=== PATIENT | female | born 1945 | race Caucasian/White ===

== ENCOUNTER → 2017-12-04 17:04 | Outpatient (CLI) | payer MEDICARE, SELFPAY ==
[2017-04-11 08:38] VITALS: BMI 43.9
--- NOTE | 2017-12-04 17:00 | CT_ITS ---
STUDY: CT CHEST WITHOUT CONTRAST REASON FOR EXAM: Female, 72 years old. Pulmonary fibrosis RADIATION DOSAGE (If Supplied By Facility): CTDIvol = ( 14.80 ) mGy, DLP = ( 391.83 ) mGycm TECHNIQUE: Transaxial imaging was performed without the administration of intravenous contrast material. Individualized dose optimization techniques were used for this CT. COMPARISON: None. FINDINGS: The lungs are not fully expanded with interstitial prominence. Mild fibrosis at the lung bases posteriorly. Normal heart and pericardium. Up to 1.3 cm nodes in the mediastinum. Normal hilar regions. Normal unenhanced pulmonary arteries. Calcified aorta arch and descending thoracic aorta. Prominent ascending aorta measuring 4.5 cm in diameter. Mild degenerative vertebral changes with probable hemangiomas noted of several vertebral bodies. There is no demonstrated abnormality of the visualized upper abdomen. CT/Chest without Contrast IMPRESSION: Interstitial prominence. Mild bilateral basilar fibrotic changes. Dilated ascending aorta. Electronically Signed: Efrain Garcia DO at 23:34 EST Tel [phone], Service support ,
--- NOTE | 2017-12-04 17:16 | RAD_ITS ---
STUDY: X-RAY - RIGHT KNEE REASON FOR EXAM: Female, 72 years old. Pain TECHNIQUE: 4 view(s) of the knee. COMPARISON: None. FINDINGS: Normal visualized distal femur. Normal visualized proximal tibia and fibula. Normal proximal tibiofibular articulation. Minimal spurring and slight narrowing at the medial femorotibial compartment. Mild spurring at the lateral femorotibial compartment. Degenerative spurring and narrowing at the patellofemoral articulation. The soft tissue structures are unremarkable. RAD/Knee 4 or More Views IMPRESSION: Mild degenerative changes of the knee. Electronically Signed: Efrain Garcia DO at 22:52 EST Tel [phone], Service support ,
== END ==
PROVIDERS: Family Provider Internal Medicine; PCP Internal Medicine; Visit Provider Internal Medicine Critical Care Medicine
DX: M25.561 Pain in right knee (principal); J84.10 Pulmonary fibrosis, unspecified
CPT/HCPCS: 71250; 73564

== ENCOUNTER → 2017-12-30 12:56 | Outpatient (CLI) | payer MEDICARE, MEDICAID, SELFPAY ==
[2017-04-11 08:38] VITALS: BMI 43.9
== END ==
PROVIDERS: Family Provider Internal Medicine; PCP Internal Medicine; Visit Provider Internal Medicine Critical Care Medicine
DX: G47.33 Obstructive sleep apnea (adult) (pediatric) (principal)
CPT/HCPCS: 98960; G0463

== ENCOUNTER → 2018-03-03 14:22 | Outpatient (CLI) | payer MEDICARE, SELFPAY ==
[2017-04-11 08:38] VITALS: BMI 43.9
--- NOTE | 2018-03-03 14:25 | BI_ITS ---
MAMMOGRAPHY - BILATERAL SCREENING REASON FOR EXAM: Female, 72 years old. Routine annual screening examination. PERTINENT HISTORY: no fam hx rt mole removal 2010 rt mole marked TECHNIQUE: Digital bilateral breast massiel (3D mammographic acquisition) in the CC and MLO projections. 2-D mediolateral oblique (MLO) and craniocaudad (CC) views of both breasts were obtained. CAD: Full Field Digital Mammography with Computer Added Detection was performed. COMPARISON: Feb 14 2017 2:41pm FINDINGS: Breast Composition: There are scattered areas of fibroglandular density. There are no dominant masses or suspicious calcifications. No other significant abnormalities are identified. BI/SCREENING MAMM (CAD), BILAT IMPRESSION: Stable bilateral screening mammogram. Yearly follow-up mammogram recommended. (A) ASSESSMENT CATEGORY: BIRADS Category 2: Benign. A letter regarding these results will be sent to the patient by the facility within 30 days. Approximately 10% of breast cancers are not detected by mammography. A normal mammogram should not delay biopsy of a clinically suspicious abnormality. [id number] Electronically Signed: Christian Mehta MD at 13:18 EDT Tel , Service support ,
== END ==
PROVIDERS: Family Provider Internal Medicine; PCP Internal Medicine; Visit Provider Internal Medicine
DX: Z12.31 Encounter for screening mammogram for malignant neoplasm of breast (principal)
CPT/HCPCS: 77063; 77067

== ENCOUNTER → 2018-05-18 12:53 | Outpatient (CLI) | payer MEDICARE, SELFPAY ==
[2017-04-11 08:38] VITALS: BMI 43.9
--- NOTE | 2018-05-19 14:32 | PFT ---
INTRODUCTION: The patient is a 73-year-old female that presents for pulmonary function studies secondary to a diagnosis of idiopathic pulmonary fibrosis. Respiratory therapy reports good patient effort. Bronchodilators were used during testing. INTERPRETATION: Forced expiration spirometry demonstrates no evidence of a large airways obstructive ventilatory defect. There was no significant response to aerosolized bronchodilators. Spirograms are of good quality and plateau normally. The respiratory flow volume loop appears restricted in nature. Body plethysmography was performed and reveals a decreased TLC to 3.2 L, 67% of predicted, indicative of a moderate restrictive ventilatory defect. The remainder of the lung volumes are symmetrically reduced. Diffusing capacity by single breath CO is severely reduced at 37% of predicted. When compared to previous pulmonary function studies dated September 2017, there has been a significant decrease in the patient's TLC along with a 9% reduction in DLCO. IMPRESSION: These pulmonary function studies demonstrate the presence of a moderate restrictive ventilatory defect with a disproportionate severe reduction in diffusing capacity. There has been worsening in the patient's PFTs since they were last completed in September 2017.
== END ==
PROVIDERS: Family Provider Internal Medicine; PCP Internal Medicine; Visit Provider Nurse Practitioner Acute Care
DX: J84.112 Idiopathic pulmonary fibrosis (principal)
CPT/HCPCS: 94060; 94726; 94729

== ENCOUNTER → 2018-05-26 14:47 | Outpatient (CLI) | payer MEDICARE, SELFPAY ==
[2017-04-11 08:38] VITALS: BMI 43.9
[2018-05-26 18:03] LABS: Hematocrit 37.5 % (37-47); Hemoglobin 11.9 g/dl (12.0-15.0); Mean Corp Hgb Conc 31.7 g/gl (32-36); Mean Corpuscular Hgb 27.7 pg (27.0-32.0); Mean Corpuscular Volume 87.2 fL (81-99); Platelet Count 274 K/mm3 (150-450); RBC Distribution Width CV 14.3 % (11.6-14.6); RBC Distribution Width SD 45.5 fl (35.1-43.9); White Blood Count 8.7 K/mm3 (4.4-11.0)
[2018-05-26 18:16] LABS: Scan Indicated on CBC? Y/N NO
[2018-05-26 19:09] LABS: ALB/GLOB Ratio 1.1 RATIO (0.9-2.4); AST(SGOT) 13 U/L (15-37); Alanine Aminotransfer ALT/SGPT 25 U/L (13-56); Albumin, Serum 4.1 g/dL (3.2-5.0); Alkaline Phosphatase 103 U/L (45-117); Anion Gap 9 (5-15); BUN 25 mg/dL (7-18); BUN/Creat Ratio 15.1 RATIO (10-20); Calcium,Total 8.9 mg/dL (8.5-10.1); Chloride 104 mmol/L (98-107); Creatinine, Serum 1.66 mg/dL (0.55-1.02); EST Glomerular Filtration Rate 32 mL/min (>60); Est Glom Filt Rate - Afr Amer 39 mL/min (>60); Free T3 2.1 pg/mL (2.18-3.98); Globulin 3.7 g/dL (2.2-4.2); Glucose 82 mg/dL (74-106); Magnesium 2.2 mg/dL (1.6-2.6); Phosphorus 2.9 mg/dL (2.5-4.9); Potassium 4.1 mmol/L (3.5-5.1); Protein, Total 7.8 g/dL (6.4-8.2); Sodium Level 138 mmol/L (136-145); T4 Free Direct 0.86 ng/dL (0.76-1.46); Thyroid Stim Hormone (TSH) 2.06 uIU/mL (0.358-3.74)
[2018-05-27 08:31] LABS: Vitamin B12 313 pg/mL (211-911); Vitamin D,25 Hydroxy 28.7 ng/mL (29.95-100.01)
== END ==
PROVIDERS: Family Provider Internal Medicine; PCP Internal Medicine; Visit Provider Internal Medicine
DX: E03.9 Hypothyroidism, unspecified (principal); R20.2 Paresthesia of skin; R53.83 Other fatigue
CPT/HCPCS: 36415; 80053; 82306; 82607; 83735; 84100; 84439; 84443; 84481; 85027

== ENCOUNTER 2018-06-02 14:30 | Outpatient (RCR) | payer MEDICARE, SELFPAY ==
[2017-04-11 08:38] VITALS: BMI 43.9
--- NOTE | 2018-04-16 16:22 | HP.PTEVAL_ITS ---
Patient's Visit Information SILVIA TRUJILLO is a 73 year old F referred to Physical Therapy by ROSALBA Hussein C with a diagnosis of Weakness. Date of Evaluation: 04/16/18 Physical Therapist: Alexa Merchant - Visit Plan Frequency: 2x /Week Duration: 4 Weeks Plan: Focus on LE/core s/s and balance - Subjective Subjective: Patient reports that she is have a hard time with her legs and not being able to breathe. Is having a lot of problems with her knees that they feel like they are made of out jelly and they give out. Has been using a cane for about 3 months. Her legs have been bothering her since about the week after Thanksgiving- insidious onset. Feels that some may be OA, fibro and neuropathy. Knee cap feels like its on backwards. Worst: 05/12 Agg: doing anything. Eases: pain patch and Tylenol, stretching and ice/heat. Pain radiates to the bottoms of her feet. Reports hip and back pain as well- hurts all over due to the Fibromyalgia. Has been diagnosed with Fibro for at least 7 years. Is in pain management- Dr. Smyth (back, knees, and everything)- has been there about a year- the pain patch helps a lot. Just saw them on Friday and she is going to get an injection in May in her back. The last fall was in Dec- lives alone- in an apartment and has home health 3x a week-bathing, dressing, cleaning and grocery store- is able to drive. PMHx/Meds: scanned into chart - Objective Posture: FH, RS, Increased kyphosis- can not correct with verbal cues. Gait: antalgic- straight cane- decreased casandra- very SOB- wide PERCY. HR/TR: can do them but requires significant UE support. SLS: WS but unable to SLS. Static and dynamic balance are both fair minus- sitting balance is fair. Palpation: tender along medial and lateral joint line bilateral right>left. ROM: WFL. Strength: Ankle: 4+/5, Knee: 4/5, Hip: 4-/5 Core: poor - Goals Goal 1:: Patient will be I with HEP and progression Goal Time Frame: 4-6 Weeks Goal 2:: Patient will ambulate >300 feet with no SOB and a normalized gait pattern Goal Time Frame: 4-6 Weeks Goal 3:: Patient will demo 4/5 strength in LE Goal Time Frame: 4-6 Weeks Goal 4:: Patient will report no LOB for 1 week Goal Time Frame: 4-6 Weeks - Rehabilitation Potential Physical Therapy Diagnosis: Patient presents with hypomobility- she has decreased strength and muscular endurance leading to abnormal gait pattern and increased pain with activity Rehabilitation Potential: Fair - Anticipated Interventions Patient/Client Instruction: Educate patient on: Benefits of Fitness Program For the Purpose of:: To improve performance and independence with ADL's Therapeutic Exercise to Include: Strength training, Endurance training, Agility training, Body mechanics, Postural training, Flexibilty training, Neuromotor development, Dynamic Lumbar Stabilization For the Purpose of:: To improve muscle performance and motor function Thank you for the opportunity to evaluate your patient. For Medicare and Medicare HMO plans, please review the plan of care and approve it. It will need to be FAXED BACK to us at [phone] for Medicare purposes. Please let me know if there are questions or concerns regarding this plan of care. Physician Signature: Date:
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
== END 2018-06-02 19:00 | disposition home or self-care (01) ==
LOC: PT 14:30
PROVIDERS: Family Provider Internal Medicine; PCP Internal Medicine; Visit Provider Nurse Practitioner Acute Care
DX: R53.1 Weakness (principal); R29.6 Repeated falls
CPT/HCPCS: 97110; 97162; 97164

== ENCOUNTER → 2018-06-09 14:17 | Outpatient (CLI) | payer MEDICARE, SELFPAY ==
[2017-04-11 08:38] VITALS: BMI 43.9
[2018-06-09 15:03] LABS: Rheumatoid Factor < 10.0 IU/mL (<15)
[2018-06-10 15:44] LABS: ANTINUCLEAR ANTIBODIES DIRECT Negative (Negative)
[2018-06-11 03:07] LABS: Cytoplasmic Ab (C-ANCA) <1:20 titer (Neg:<1:20)
[2018-06-11 11:24] LABS: CCP IgG Antibodies 4 units (0-19); Perinuclear Ab (P-ANCA) <1:20 titer (Neg:<1:20)
== END ==
PROVIDERS: Family Provider Internal Medicine; PCP Internal Medicine; Visit Provider Internal Medicine Critical Care Medicine
DX: J84.112 Idiopathic pulmonary fibrosis (principal)
CPT/HCPCS: 36415; 86038; 86200; 86225; 86235; 86256; 86431

== ENCOUNTER → 2018-06-30 12:41 | Outpatient (CLI) | payer MEDICARE, SELFPAY ==
[2017-04-11 08:38] VITALS: BMI 43.9
== END ==
PROVIDERS: Family Provider Internal Medicine; PCP Internal Medicine; Visit Provider Internal Medicine Critical Care Medicine
DX: J84.112 Idiopathic pulmonary fibrosis (principal)
CPT/HCPCS: 71250

== ENCOUNTER → 2018-07-29 13:14 | Outpatient (CLI) | payer MEDICARE, SELFPAY ==
[2017-04-11 08:38] VITALS: BMI 43.9
--- NOTE | 2018-07-29 13:45 | MRI_ITS ---
STUDY: MRI LUMBAR SPINE WITHOUT CONTRAST REASON FOR EXAM: Female, 73 years old. Low back pain with difficulty walking TECHNIQUE: Standardized fat and water weighted pulse sequences were obtained in the sagittal and axial planes. COMPARISON: November 26, 2016 FINDINGS: T12-L1: Normal endplates. Normal disc height, hydration and morphology. Normal bilateral facet joints. Normal central canal and bilateral lateral recesses. Normal bilateral intervertebral neural foramina. Normal lumbar lordosis. There is no substantial scoliosis. Normal conus medullaris that terminates at T12-L1 L1-2: Mild endplate spurring. Normal disc height, hydration and morphology. Normal bilateral facet joints. Normal central canal and bilateral lateral recesses. Normal bilateral intervertebral neural foramina. L2-3: Mild endplate spurring. Normal disc height, desiccation and mild annular bulge in association with small left posterolateral/foraminal disc protrusion.. Normal bilateral facet joints. Normal central canal. Minor left lateral recess and neuroforaminal encroachment with moderate narrowing on the left. L3-4: Normal endplates. Normal disc height, desiccation and mild annular bulge. Mild facet arthropathy and thickening of ligamenta flava.. Normal central canal. Mild bilateral recess and neuroforaminal encroachment. L4-5: Normal endplates. Normal disc height, desiccation and minor annular bulge with small right posterolateral/foraminal disc fusion and moderate sized protrusion on the left. Mild facet arthropathy and thickening of the ligament flava.. Normal central canal. Mild right lateral recess and neuroforaminal encroachment with moderate narrowing on the left. L5-S1: Normal endplates. Normal disc height, desiccation and mild annular bulge with small broad-based left posterolateral/foraminal disc protrusion... Facet arthropathy and thickening of ligamenta flava.. Normal central canal.. Mild to moderate left lateral recess and neuroforaminal stenosis Normal visualized sacral ala. Normal visualized paraspinous soft tissue structures. Findings are similar to that seen on prior study MRI/Spine Lumbar (Routine) IMPRESSION: No evidence for acute fracture or subluxation Multilevel spinal stenosis secondary to disc disease and bony hypertrophy more pronounced on the left. Findings as above Electronically Signed: Haja Diane MD at 16:24 EDT , Service support ,
== END ==
PROVIDERS: Family Provider Internal Medicine; PCP Internal Medicine; Visit Provider Nurse Practitioner Acute Care
DX: M54.5 Low back pain (principal)
CPT/HCPCS: 72148

== ENCOUNTER → 2018-09-02 15:59 | Outpatient (CLI) | payer MEDICARE, SELFPAY ==
[2017-04-11 08:38] VITALS: BMI 43.9
--- NOTE | 2018-09-02 16:03 | RAD_ITS ---
STUDY: X-RAY CHEST REASON FOR EXAM: Female, 73 years old. Cough and short of breath TECHNIQUE: Frontal and lateral views of the chest. COMPARISON: Chest x-ray 11/14/2017, CT scan 06/30/2018. FINDINGS: Continued low lung volumes. Continued interstitial prominence consistent with fibrosis. Continued elevation of the right hemidiaphragm. No focal infiltrates. No effusions. No significant change. Normal size heart. Normal mediastinum and hussein. Normal visualized pulmonary arteries. Normal visualized aortic arch and descending thoracic aorta. There are diffuse degenerative changes of the visualized thoracic spine. Normal visualized ribs, clavicles, and shoulders. There is no demonstrated abnormality of the visualized soft tissue structures of the upper abdomen. RAD/Chest PA and Lateral IMPRESSION: No change. Continued low lung volumes and chronic interstitial fibrosis. Electronically Signed: Jamin Velez MD at 14:07 EDT , Service support ,
[2018-09-02 17:39] LABS: Absolute Lymphocyte Count 1.64 X10^3/ul (0.83-4.51); Absolute Neutrophil Count 5.3 X10^3/uL (2.0-7.7); Basophil# 0.04 X10^3/uL; Basophil% 0.5 % (0-1); Eosinophil# 0.31 X10^3/uL; Eosinophils% 3.9 % (0-5); Hematocrit 35.1 % (37-47); Lymphocyte # 1.64 X10^3/ul (4.0); Lymphocyte % 20.7 % (19-41); Mean Corp Hgb Conc 31.3 g/gl (32-36); Mean Corpuscular Hgb 28.1 pg (27.0-32.0); Mean Corpuscular Volume 89.5 fL (81-99); Mean Platelet Vol. 9.8 fl (6.2-12.0); Monocyte# 0.65 X10^3/uL; Monocyte% 8.2 % (0-10); Neutrophil # 5.25 X10^3/uL (2.7-7.7); Neutrophil % 66.3 % (47-70); POSITIVE COUNT NO; POSITIVE DIFFERENTIAL NO; POSITIVE MORPHOLOGY NO; Platelet Count 232 K/mm3 (150-450); RBC Distribution Width CV 14.5 % (11.6-14.6); RBC Distribution Width SD 47.4 fl (35.1-43.9); Red Blood Count 3.92 M/mm3 (4.2-5.4); White Blood Count 7.9 K/mm3 (4.4-11.0)
== END ==
PROVIDERS: Family Provider Internal Medicine; PCP Internal Medicine; Referring Provider Nurse Practitioner Family; Visit Provider Nurse Practitioner Family
DX: N18.3 Chronic kidney disease, stage 3 (moderate) (principal); R05 Cough; R06.02 Shortness of breath
CPT/HCPCS: 36415; 71046; 85025

== ENCOUNTER 2018-10-20 14:59 | Inpatient (IN) | payer MEDICARE, MEDICAID, SELFPAY ==
[2017-04-11 08:38] VITALS: BMI 43.9
[2018-10-02 13:45] VITALS: BMI 44.6
[2018-10-20] VITALS (21 sets, daily range): BP systolic 107–151; BP diastolic 57–111; PULSE 80–93; RESP 12–32; TEMP 36.7–37.2; O2SAT 88–100; BMI 45.0; BMI 45.1
--- NOTE | 2018-10-20 15:09 | RAD_ITS ---
STUDY: X-RAY CHEST REASON FOR EXAM: Female, 73 years old. Drowsiness and shortness of breath. Chest pain. TECHNIQUE: Single AP portable view of the chest. COMPARISON: Comparison is made with prior study dated September 02, 2018. FINDINGS: EKG electrodes are seen. Elevation of the right hemidiaphragm. This is unchanged. Stable increased markings in the left lung with areas of confluence suggestive of scarring. There is no demonstrated pleural abnormality. There is mild cardiac enlargement. Normal mediastinum and hussein. Normal visualized pulmonary arteries. There is atherosclerotic tortuosity of the aortic arch and descending thoracic aorta. There are diffuse degenerative changes of the visualized thoracic spine. Normal visualized ribs, clavicles, and shoulders. There is no demonstrated abnormality of the visualized soft tissue structures of the upper abdomen. RAD/Chest 1 View (Portable) IMPRESSION: Stable examination. Electronically Signed: Bernabe Norwood MD at 15:45 EST Tel [phone], Service support ,
--- NOTE | 2018-10-20 15:15 | ED.VISSUMM ---
- ER Visit Summary Date of Service: 10/20/18 Chief Complaint: Shortness of breath History of Present Illness: The patient is a 73 F with history of idiopathic pulmonary fibrosis, coronary vascular disease status post stenting, and oxygen dependence presents to the emergency department shortness of breath and chest pain. History is hard to gather from the patient given her respiratory distress. She apparently called squad today because she was having chest pain and felt like she could not breathe. She states that she has been excessively tired over the past day. She does feel like she is not moving much air. She has had a scant cough but denies any productive sputum. She denies any fevers or chills. Her major complaint is fatigue. She has increased her oxygen at home. On squad arrival, she was found to be hypoxic and placed on a nonrebreather. She states that it did improve her chest pain. Physical Examination: Vital signs reviewed General: Well-nourished, well-developed Head: Normocephalic, atraumatic Eyes: Pupils equal and reactive, extraocular muscles intact Neck, supple, no lymphadenopathy Heart: Regular rate and rhythm Respiratory: Diminished air movement in all lung smalls Abdomen: Soft, nontender, nondistended, no peritoneal signs Back: Nontender Extremities: Nontender, no edema, no cords Skin: Normal color no rash Neuro: Alert and oriented, no focal or lateralizing deficits Test Results: [] Emergency Department Course and Treatment: EKG was obtained on patient arrival. There is no acute ischemia. Patient was placed on BiPAP. Her blood gas does show evidence of hypercapnia with mild acidosis. I do feel that this is likely the etiology of her symptoms. The patient does have underlying pulmonary fibrosis. Her x-ray does not show any evidence of volume overload or acute infiltrative process. We did have a difficult time obtaining screening labs. I attempted to peripheral IVs under ultrasound and were unable to get blood. With the patient's severe illness, she was consented for central line. This was done in the right IJ under ultrasound guidance. Repeat x-ray shows to be in good position. With her hypercapnic respiratory failure and requirement of BiPAP, I do feel the patient is in require admission to the ICU at least overnight. I did discuss her care with Dr. De Los Santos. He was comfortable holding on antibiotics at this time. Patient was also discussed with the hospitalist and will be admitted. Treatment Plan: [] Disposition: Admission Impression: 1. Acute hypercapnic respiratory failure 2. Hypoxia 3. Chest pain 4. Central line by ED physician This note was generated with [employer] dictation software. It may contain incorrect words, spelling, and punctuation that were not noted in review of the chart prior to signing ED Disposition - Plan for ED Patient: Chief Complaint: Shortness of Breath Referrals: Judy Mcnulty MD [Primary Care Provider] -
[2018-10-20 15:41] LABS: Base Excess 2 mmol/L (-2 to +2); Bicarbonate 28.5 mmol/L (22-26); Blood Gas Specimen Type ART; O2 Delivery Device NRB Mask; PO2 133 mmHG (75-100); SITE L Radial; SO2 98 % (95-99); Time Given 1530; Total Carbon Dioxide 30 mmol/L; pCO2 62.2 mmHg (35-45); pH 7.27 (7.35-7.45)
[2018-10-20 16:00] LABS: Anion Gap 8 (5-15); BUN 36 mg/dL (7-18); BUN/Creat Ratio 20.5 RATIO (10-20); Calcium,Total 8.4 mg/dL (8.5-10.1); Chloride 106 mmol/L (98-107); Creatinine, Serum 1.76 mg/dL (0.55-1.02); EST Glomerular Filtration Rate 30 mL/min (>60); Est Glom Filt Rate - Afr Amer 36 mL/min (>60); Glucose 89 mg/dL (74-106); Potassium 4.7 mmol/L (3.5-5.1); Sodium Level 139 mmol/L (136-145)
[2018-10-20] MEDS: Ipratropium/Albuterol Sulfate 3 ML AMPUL.NEB INHALATION (16:20)
--- NOTE | 2018-10-20 16:35 | ED.RN ---
pt had multiple attempts at iv. lab, rn, medic, and dr have tried. dr consulted about central line. dario cline rn [phone]
--- NOTE | 2018-10-20 17:05 | RAD_ITS ---
STUDY: X-RAY CHEST REASON FOR EXAM: Female, 73 years old. Central line placement. TECHNIQUE: Portable chest. COMPARISON: 3:20 PM. FINDINGS: Low lung volumes. Right IJ line terminates at the junction of the superior vena cava and right atrium. The lungs are clear and expanded. There is no demonstrated pleural abnormality. Normal size heart. Normal mediastinum and hussein. Normal visualized pulmonary arteries. Normal visualized aortic arch and descending thoracic aorta. Soft tissues and bony structures are unremarkable. RAD/CXR for Line Placement IMPRESSION: Right IJ line terminates in the SVC at the right atrial junction. No acute process. Electronically Signed: Amaris Barr MD at 17:57 EST Tel , Service support ,
[2018-10-20 17:26] LABS: Absolute Lymphocyte Count 1.65 X10^3/ul (0.83-4.51); Basophil# 0.03 X10^3/uL; Basophil% 0.3 % (0-1); Eosinophil# 0.33 X10^3/uL; Eosinophils% 3.3 % (0-5); Hematocrit 33.9 % (37-47); Hemoglobin 10.4 g/dl (12.0-15.0); Lymphocyte # 1.65 X10^3/ul (4.0); Lymphocyte % 16.6 % (19-41); Mean Corp Hgb Conc 30.7 g/gl (32-36); Mean Corpuscular Hgb 28.3 pg (27.0-32.0); Mean Corpuscular Volume 92.4 fL (81-99); Mean Platelet Vol. 10.1 fl (6.2-12.0); Monocyte# 0.94 X10^3/uL; Monocyte% 9.4 % (0-10); Neutrophil # 6.95 X10^3/uL (2.7-7.7); Neutrophil % 69.9 % (47-70); Platelet Count 83 K/mm3 (150-450); RBC Distribution Width CV 14.5 % (11.6-14.6); RBC Distribution Width SD 47.5 fl (35.1-43.9); Red Blood Count 3.67 M/mm3 (4.2-5.4)
[2018-10-20 17:30] LABS: Lactic Acid 0.6 mmol/L (0.4-2.0)
[2018-10-20 17:40] LABS: POSITIVE COUNT NO; POSITIVE DIFFERENTIAL NO; POSITIVE MORPHOLOGY NO
[2018-10-20 17:53] LABS: BNP,B-Type NATRIURETIC PEPTIDE 78.3 pg/mL (0-100)
[2018-10-20] MEDS: MethylPREDNISolone 125 MG/2 ML Vial IV (17:55)
[2018-10-20] MEDS: 0.9% Normal Saline 1,000 ML 75 ML IV (19:30)
--- NOTE | 2018-10-20 19:34 | ED.RN ---
REPORT GIVEN TO QUE IN ICU.
--- NOTE | 2018-10-20 21:24 | PCM.HP.STD ---
Problem List (1) Shortness of breath Status: Acute (2) Chest pain Status: Resolved Qualifiers: Chest pain type: precordial pain Qualified Code(s): R07.2 - Precordial pain History of Present Illness Date of Admission: 10/20/18 Chief Complaint: Shortness of breath, chest pain The patient is a 73 year old [facility] after being brought in by squad with complaints of shortness of breath and chest pain. Complete history was unobtainable due to patient's respiratory distress and altered mental status. Information obtained by the emergency room physician from the patient indicated that the patient was having some chest discomfort and felt that she could not breathe. She had also been complaining of excessive fatigue times 1 day. Patient admitted to a cough but denied productive sputum. On arrival of the squad, patient was found to be hypoxic and placed on a nonrebreather. Evaluation in the emergency room included an EKG which showed no acute ischemic changes, patient was placed on BiPAP, arterial blood gases were obtained which showed a mild acidosis and hypercapnia. X-ray did not show any evidence of acute CHF or an acute infiltrative process. Lab was unable to obtain blood and the patient consented to central line which was placed in the emergency room by the emergency room physician. Repeat chest x-ray showed no evidence of pneumothorax. Central line appear to be in good position. Obtained which showed a normal white blood cell count, hemoglobin was 10.4, creatinine was elevated at 1.76, BUN was 36, troponin was normal. Patient's lactic acid was not elevated. Pulmonary medicine was contacted and the patient was admitted to ICU for acute respiratory failure and chest discomfort. Review of systems was unobtainable from the patient due to her respiratory distress and decreased mental status. After the patient was admitted to the ICU, her niece informed nursing that the patient was a hospice patient at home but according to her niece, patient rescinded hospice and agreed to go to the hospital by [facility]. Past Medical History Past Medical History (Chronic Problems): Chronic Problems (Last Reviewed 10/02/18 @ 19:13 by Shivani Medellin NP-Justin) CKD (chronic kidney disease), stage III (Chronic) Spinal stenosis (Chronic) Hyperlipidemia (Chronic) Old myocardial infarction (Chronic) NONSTEMI March 2015 Chronic constipation (Chronic) MYRNA (obstructive sleep apnea) (Chronic) Chronic hypoxemic respiratory failure (Chronic) Anxiety (Chronic) Hypothyroid (Chronic) Low back pain radiating to right lower extremity (Chronic) CKD (chronic kidney disease), stage II (Chronic) HTN (hypertension) (Chronic) Idiopathic pulmonary fibrosis (Chronic) Chronic renal failure, stage 3 (moderate) (Chronic) Fibromyalgia (Chronic) Somatic dysfunction of rib cage region (Chronic) Stented coronary artery (Chronic) 2 stents to the RCA in March by Dr. Irvin; PCI-BMS-RCA X 2 03/16/15; [facility] w/PCI JORDAN-RCA 04/10/17 CAD (coronary artery disease) (Chronic) Morbid obesity (Chronic) GERD (gastroesophageal reflux disease) (Chronic) Medical History: Medical History (Last Reviewed 10/02/18 @ 19:13 by NELLA Coronado) Spinal stenosis (Chronic) M48.00 Hyperlipidemia (Chronic) E78.5 Old myocardial infarction (Chronic) I25.2 NONSTEMI March 2015 Chronic constipation (Chronic) K59.09 Idiopathic pulmonary fibrosis (Suspected) J84.112 MYRNA (obstructive sleep apnea) (Chronic) G47.33 Chronic hypoxemic respiratory failure (Chronic) J96.11 Anxiety (Chronic) F41.9 Hypothyroid (Chronic) E03.9 Low back pain radiating to right lower extremity (Chronic) M54.5 CKD (chronic kidney disease), stage II (Chronic) N18.2 HTN (hypertension) (Chronic) I10 Idiopathic pulmonary fibrosis (Chronic) J84.112 Chest pain (Resolved) R07.9 Parotitis (Resolved) K11.20 Chronic renal failure, stage 3 (moderate) (Chronic) N18.3 Fibromyalgia (Chronic) Atypical chest pain (Acute) R07.89 Somatic dysfunction of rib cage region (Chronic) M99.08 CAD (coronary artery disease) (Chronic) I25.10 Morbid obesity (Chronic) E66.01 GERD (gastroesophageal reflux disease) (Chronic) K21.9 Atherosclerotic heart disease cheesh-na coronary artery w/angina pectoris I25.119 Body mass index (BMI) 40.0-44.9, adult Z68.41 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 Chronic kidney disease, stage 3 N18.3 GALLOWAY (dyspnea on exertion) R06.09 Hyperlipidemia E78.5 Hypothyroidism E03.9 Multi-vessel coronary artery stenosis I25.10 Obesity E66.9 Old myocardial infarction I25.2 Shortness of breath R06.02 H/O: hysterectomy Z90.710 Allergies codeine Allergy (Verified 10/20/18 15:09) Shortness of breath Penicillins Allergy (Verified 10/20/18 15:09) Shortness of breath Sulfa (Sulfonamide Antibiotics) Allergy (Verified 10/20/18 15:09) Shortness of breath atorvastatin Adverse Reaction (Intermediate, Verified 10/20/18 15:09) Myalgias Home Medications: Ambulatory Orders Medication Instructions Recorded Nitroglycerin [Nitrostat] 0.4 mg SUBLINGUAL Q5M PRN 03/29/16 Oxygen, Home [Home Oxygen] 2 lpm NASAL CONT 04/03/16 c-pap MISCELLANEOUS 11/11/17 aspirin 81 mg tablet,delayed 81 mg PO QDAY #30 tab 12/08/17 release lisinopril 10 mg tablet 10 mg PO DAILY #30 tab 12/08/17 cholecalciferol (vitamin D3) 2,000 2,000 unit PO QDAY tab 12/17/17 unit tablet fentanyl 12 mcg/hr transdermal 1 patch TRANSDERMAL Q72H 01/13/18 patch ranitidine 300 mg tablet 300 mg PO QDAY tab 01/15/18 metoprolol succinate ER 25 mg 25 mg PO DAILY #30 tab 01/23/18 tablet,extended release 24 hr gabapentin 400 mg capsule 800 mg PO QHS #180 cap 02/05/18 clopidogrel 75 mg tablet 75 mg PO DAILY #90 tab 03/20/18 linaclotide 145 mcg capsule 145 mcg PO QDAY #90 cap 04/01/18 furosemide 40 mg tablet 40 mg PO DAILY #90 tab 05/05/18 albuterol sulfate HFA 90 2 puff INHALATION Q4H PRN #18 g 07/31/18 mcg/actuation aerosol inhaler amitriptyline 25 mg tablet 50 mg PO QDAY tab 07/31/18 loratadine 10 mg capsule 10 mg PO DAILY #90 cap 08/07/18 omeprazole 40 mg capsule,delayed 40 mg PO DAILY #90 cap 08/07/18 release trazodone 50 mg tablet 50 mg PO QHS PRN #90 tab 08/11/18 guaifenesin ER 1,200 mg tablet, 1,200 mg PO Q12H #14 tab 09/02/18 extended release 12 hr duloxetine 20 mg capsule,delayed 60 mg PO BID #180 cap 09/09/18 release gabapentin 300 mg capsule 300 mg PO BID #180 cap 09/09/18 levothyroxine 25 mcg tablet 25 mcg PO DAILY #90 tab 09/09/18 montelukast 10 mg tablet 10 mg PO DAILY #90 tab 09/09/18 pravastatin 40 mg tablet 40 mg PO QHS #90 tab 09/09/18 lorazepam 0.5 mg tablet 0.5 mg PO QHS PRN #30 tab 09/21/18 Surgical History: Surgical History (Last Reviewed 10/02/18 @ 19:13 by NELLA Coronado) Stented coronary artery (Chronic) 2 stents to the RCA in [place] by Dr. Irvin; PCI-BMS-RCA X 2 03/16/15; [facility] w/PCI JORDAN-RCA 04/10/17 S/P lumpectomy, right breast Z98.890 STATUS POST CARDIAC STENT PLACEMENT Surgical History: no surgical history, hysterectomy, - - 2 coronary stents into the RCA in March 2015. Kidney Stones. Psychiatric History: No pertinent psych hx DIRECTOR OF HEALTH EDUCATION History: No pertinent DIRECTOR OF HEALTH EDUCATION history Lives: Alone Smoking Status: Never smoker Tobacco Use: Non-smoker Alcohol: None Drugs: None - *Family History Maternal Family History: Family History (Last Reviewed 10/02/18 @ 19:13 by NELLA Coronado) Sister Hypertension COPD (chronic obstructive pulmonary disease) Mother Dementia History Items: Hypertension Paternal Family History: Family History (Last Reviewed 10/02/18 @ 19:13 by NELLA Coronado) Sister Hypertension COPD (chronic obstructive pulmonary disease) Mother Dementia History Items: No pertinent history Sibling Family History: Family History (Last Reviewed 10/02/18 @ 19:13 by NELLA Coronado) Sister Hypertension COPD (chronic obstructive pulmonary disease) Mother Dementia History Items: Heart Disease Review of Systems Comment: Review of systems was unobtainable due to the patient's respiratory distress and altered mental status due to hypoxia and hypercapnia VTE Information - Inpt Only VTE Present on Admission: No VTE Mechan Device Prophylaxis: None VTE Pharm Prophylaxis ordered?: Yes Patient Problems: Active and Suspected Problems (Last Updated 10/20/18 @ 21:32 by Osvaldo Franco DO) Shortness of breath (Acute) - Physical Exam General: Well developed, Lethargic, - - Appearred to be in moderate respiratory distress and is on BiPAP HEENT: Atraumatic, PERRLA, EOMI, Normocephalic Oral: Moist Mucosa Neck: No JVD, No Nuchal Rigidity, Trachea Midline, Thyroid Normal Size and Texture Lungs: Clear to auscultation, No rhonchi, No wheeze, No rales, Diminished Cardiovascular: Regular rate, Regular Rhythm, Normal S1, Normal S2, No murmurs, No Ectopic Activity, PMI Normal, No rub noted, No Gallop Abdomen: Bowel Sounds Present, Soft, Non Tender, Non-Distended, Obese, No hernias noted Extremities: No clubbing, No cyanosis, No edema, Capillary Refill Less than 3 Seconds Neurological: Cranial nerves II-XII grossly intact, Neuro grossly intact Psych/Mental Status: - - Patient responds to painful stimuli and loud verbal stimuli but is confused Vital Signs Temp Pulse Resp BP Pulse Ox 98.1 F 82 22 H 133/81 H 93 10/20/18 19:56 10/20/18 21:00 10/20/18 21:00 10/20/18 21:00 10/20/18 21:00 Oxygen Flow Rate (L/min) 15 Oxygen Delivery Method Bi-pap Weight: 119.3 kg Body Mass Index (BMI) 45.1 Laboratory Tests Past 24 Hrs 10/20/18 10/20/18 10/20/18 15:24 15:24 15:24 WBC Cancelled Corrected WBC Cancelled RBC Cancelled Hgb Cancelled Hct Cancelled MCV Cancelled MCH Cancelled MCHC Cancelled RDW Cancelled RDW Differential Cancelled Plt Count Cancelled MPV Cancelled Immature Gran % (Auto) Cancelled Neut % (Auto) Cancelled Lymph % (Auto) Cancelled [place] % (Auto) Cancelled Eos % (Auto) Cancelled Baso % (Auto) Cancelled Immature Gran # (Auto) Cancelled Absolute Neuts (auto) Cancelled Absolute Lymphs (auto) Cancelled Absolute Monos (auto) Cancelled Total Counted Cancelled Neutrophils % (Manual) Cancelled Band Neutrophils % Cancelled Lymphocytes % (Manual) Cancelled Monocytes % (Manual) Cancelled Eosinophils % (Manual) Cancelled Basophils % (Manual) Cancelled Metamyelocytes % Cancelled Myelocytes % Cancelled Promyelocytes % Cancelled Blast Cells % Cancelled Plasma Cell % (Manual) Cancelled Other Cells % Cancelled Lymphocytes # Cancelled Nucleated RBCs/100 WBC Cancelled Differential Comment Cancelled Diff Path Review Cancelled Hypersegmented Neuts Cancelled Atypical Lymphocytes Cancelled Reactive Lymphocytes Cancelled Smudge Cells Cancelled Eosinophilia # Cancelled Basophilia # Cancelled Toxic Granulation Cancelled Dohle Bodies Cancelled Good Rods Cancelled Platelet Estimate Cancelled Plt Morphology Comment Cancelled RBC Morphology Cancelled Polychromasia Cancelled Hypochromasia Cancelled Poikilocytosis Cancelled Basophilic Stippling Cancelled Anisocytosis Cancelled Microcytosis Cancelled Macrocytosis Cancelled Spherocytes Cancelled Sickle Cells Cancelled Target Cells Cancelled Tear Drop Cells Cancelled Ovalocytes Cancelled Stomatocytes Cancelled Myrick-Sumrall Bodies Cancelled Urania Cells Cancelled Bite Cells Cancelled Acanthocytes (Spur) Cancelled Rouleaux Cancelled Schistocytes Cancelled Specimen Type Sample Site pH Bicarbonate Actual POC Total CO2 Base Excess O2 Saturation ABG pCO2 ABG pO2 Noah Test O2 Delivery Device Liter Flow Blood Gas Notified Whom Blood Gas Notified Time Sodium 139 Potassium 4.7 Chloride 106 Carbon Dioxide 25.0 Anion Gap 8 BUN 36 H Creatinine 1.76 H Estim Creat Clear Calc 26.00 Est GFR (MDRD) Af Amer 36 L Est GFR (MDRD) Non-Af 30 L BUN/Creatinine Ratio 20.5 H Glucose 89 Lactic Acid Calcium 8.4 L Troponin I < 0.015 B-Natriuretic Peptide Cancelled 10/20/18 10/20/18 10/20/18 15:38 17:00 17:05 WBC 10.0 Corrected WBC RBC 3.67 L Hgb 10.4 L Hct 33.9 L MCV 92.4 MCH 28.3 MCHC 30.7 L RDW 14.5 RDW Differential 47.5 H Plt Count 83 L MPV 10.1 Immature Gran % (Auto) 0.500 Neut % (Auto) 69.9 Lymph % (Auto) 16.6 L [place]illingham % (Auto) 9.4 Eos % (Auto) 3.3 Baso % (Auto) 0.3 Immature Gran # (Auto) Absolute Neuts (auto) 7.0 Absolute Lymphs (auto) 1.65 Absolute Monos (auto) Total Counted Not Reportable Neutrophils % (Manual) Band Neutrophils % Lymphocytes % (Manual) Monocytes % (Manual) Eosinophils % (Manual) Basophils % (Manual) Metamyelocytes % Myelocytes % Promyelocytes % Blast Cells % Plasma Cell % (Manual) Other Cells % Lymphocytes # Nucleated RBCs/100 WBC Differential Comment Diff Path Review Hypersegmented Neuts Atypical Lymphocytes Reactive Lymphocytes Smudge Cells Eosinophilia # Basophilia # Toxic Granulation Dohle Bodies Good Rods Platelet Estimate Plt Morphology Comment RBC Morphology Polychromasia Hypochromasia Poikilocytosis Basophilic Stippling Anisocytosis Microcytosis Macrocytosis Spherocytes Sickle Cells Target Cells Tear Drop Cells Ovalocytes Stomatocytes Myrick-Sumrall Bodies Urania Cells Bite Cells Acanthocytes (Spur) Rouleaux Schistocytes Specimen Type ART Sample Site L Radial pH 7.27 L Bicarbonate Actual 28.5 H POC Total CO2 30 Base Excess 2 O2 Saturation 98 ABG pCO2 62.2 H ABG pO2 133 H Noah Test NA O2 Delivery Device NRB Mask Liter Flow 15.0 Blood Gas Notified Whom ED Blood Gas Notified Time 1530 Sodium Potassium Chloride Carbon Dioxide Anion Gap BUN Creatinine Estim Creat Clear Calc Est GFR (MDRD) Af Amer Est GFR (MDRD) Non-Af BUN/Creatinine Ratio Glucose Lactic Acid 0.6 Calcium Troponin I B-Natriuretic Peptide 10/20/18 17:05 WBC Corrected WBC RBC Hgb Hct MCV MCH MCHC RDW RDW Differential Plt Count MPV Immature Gran % (Auto) Neut % (Auto) Lymph % (Auto) [place] % (Auto) Eos % (Auto) Baso % (Auto) Immature Gran # (Auto) Absolute Neuts (auto) Absolute Lymphs (auto) Absolute Monos (auto) Total Counted Neutrophils % (Manual) Band Neutrophils % Lymphocytes % (Manual) Monocytes % (Manual) Eosinophils % (Manual) Basophils % (Manual) Metamyelocytes % Myelocytes % Promyelocytes % Blast Cells % Plasma Cell % (Manual) Other Cells % Lymphocytes # Nucleated RBCs/100 WBC Differential Comment Diff Path Review Hypersegmented Neuts Atypical Lymphocytes Reactive Lymphocytes Smudge Cells Eosinophilia # Basophilia # Toxic Granulation Dohle Bodies Good Rods Platelet Estimate Plt Morphology Comment RBC Morphology Polychromasia Hypochromasia Poikilocytosis Basophilic Stippling Anisocytosis Microcytosis Macrocytosis Spherocytes Sickle Cells Target Cells Tear Drop Cells Ovalocytes Stomatocytes Myrick-Sumrall Bodies Urania Cells Bite Cells Acanthocytes (Spur) Rouleaux Schistocytes Specimen Type Sample Site pH Bicarbonate Actual POC Total CO2 Base Excess O2 Saturation ABG pCO2 ABG pO2 Noah Test O2 Delivery Device Liter Flow Blood Gas Notified Whom Blood Gas Notified Time Sodium Potassium Chloride Carbon Dioxide Anion Gap BUN Creatinine Estim Creat Clear Calc Est GFR (MDRD) Af Amer Est GFR (MDRD) Non-Af BUN/Creatinine Ratio Glucose Lactic Acid Calcium Troponin I B-Natriuretic Peptide 78.3 Assessment/Plan All Active Problems (Last Updated 10/20/18 @ 21:32 by Osvaldo Franco DO) Shortness of breath (Acute) Chest pain (Resolved) Parotitis (Resolved) Atypical chest pain (Acute) NSTEMI (non-ST elevated myocardial infarction) (Resolved) #1 acute on chronic hypoxemic and hypercapnic respiratory failure-patient was admitted to ICU, she will be seen by pulmonary medicine, she will be maintained on BiPAP, O2 sat will be monitored, patient is n.p.o. #2 pulmonary fibrosis #3 stage III chronic kidney disease #4 atypical chest pain-etiology unclear, troponin will be repeated in the a.m. #5 obstructive sleep apnea #6 hypertension #7 coronary artery disease #8 morbid obesity #9 spinal stenosis #10 hyperlipidemia Code Visit Inpatient E&M: 19215 Init Hosp L3
[2018-10-20] MEDS: Heparin Injection (Vial) 5,000 UNIT/ML VIAL 5000 UNIT SC (21:30)
[2018-10-21] VITALS (23 sets, daily range): BP systolic 109–152; BP diastolic 62–97; PULSE 69–93; RESP 12–28; TEMP 36.6–37.1; O2SAT 94–100
[2018-10-21] MEDS: 0.9% Normal Saline 1,000 ML 75 ML IV (02:45)
[2018-10-21 04:20] LABS: Hematocrit 33.2 % (37-47); Hemoglobin 10.3 g/dl (12.0-15.0); Mean Corpuscular Hgb 28.5 pg (27.0-32.0); Mean Platelet Vol. 9.3 fl (6.2-12.0); Platelet Count 217 K/mm3 (150-450); RBC Distribution Width CV 14.1 % (11.6-14.6); RBC Distribution Width SD 46.1 fl (35.1-43.9); Red Blood Count 3.61 M/mm3 (4.2-5.4); White Blood Count 7.2 K/mm3 (4.4-11.0)
[2018-10-21 04:25] LABS: Scan Indicated on CBC? Y/N NO
[2018-10-21 04:35] LABS: Anion Gap 8 (5-15); BUN 32 mg/dL (7-18); BUN/Creat Ratio 19.6 RATIO (10-20); Calcium,Total 8.4 mg/dL (8.5-10.1); Chloride 106 mmol/L (98-107); Creatinine, Serum 1.63 mg/dL (0.55-1.02); EST Glomerular Filtration Rate 33 mL/min (>60); Est Glom Filt Rate - Afr Amer 40 mL/min (>60); Estimated Creatinine Clearance 26.94 ml/min; Glucose 135 mg/dL (74-106); Potassium 4.5 mmol/L (3.5-5.1); Sodium Level 141 mmol/L (136-145)
[2018-10-21] MEDS: Heparin Injection (Vial) 5,000 UNIT/ML VIAL 5000 UNIT SC ×3 (05:05→21:26)
[2018-10-21] MEDS: 0.9% NaCl Peripheral Flush Adult/Peds IV ×2 (05:05→14:29)
[2018-10-21] MEDS: CHLORHEXIDINE GLUC 2% CLOTH 1 EACH TOWELETTE TOPICAL (05:05)
--- NOTE | 2018-10-21 05:55 | RAD_ITS ---
STUDY: X-RAY CHEST REASON FOR EXAM: Female, 73 years old. Dyspnea. TECHNIQUE: AP portable chest. COMPARISON: October 20, 2018. FINDINGS: Right internal jugular central line tip at the junction of the superior vena cava and right atrium. No pneumothorax. The lungs are clear and expanded. There is no demonstrated pleural abnormality. Normal size heart. Normal mediastinum and hussein. Normal visualized pulmonary arteries. Normal visualized aortic arch and descending thoracic aorta. Normal visualized thoracic spine. Normal visualized ribs, clavicles, and shoulders. There is no demonstrated abnormality of the visualized soft tissue structures of the upper abdomen. RAD/Chest 1 View (Portable) IMPRESSION: No acute cardiopulmonary disease. Electronically Signed: Raman Schwab MD at 5:44 EST , Service support ,
[2018-10-21] MEDS: Ipratropium/Albuterol Sulfate 3 ML AMPUL.NEB INHALATION ×3 (06:40→18:40)
--- NOTE | 2018-10-21 07:34 | PCM.CON.CC ---
Reason for Consult Date of Consultation: 10/21/18 Reason for Consultation: Acute on chronic respiratory failure History of Present Illness: The patient is a 73-year-old female, with a history as outlined below, who presented to the emergency department on October 20 with complaints of worsening shortness of breath and hypoxia. The patient is an established patient of mine from the pulmonary medicine clinic. She has a known history of coronary artery disease for which she is status post PCI, along with hypertension, hyperlipidemia and morbid obesity. She follows with Dr. Elias of cardiology on an outpatient basis. The patient has a presumptive diagnosis of underlying idiopathic pulmonary fibrosis, which appears to have progressed with time. She was last seen in the pulmonary medicine clinic by our nurse practitioner on October 02. At that time, there were plans to repeat the patient's PFTs and CT of her chest in 3 months. Given the progression of her symptoms, a referral appears to have been placed to hospice care. A previous noncontrasted chest CT from February 2015 demonstrated interstitial fibrotic changes in the lungs. The patient's last surface echocardiogram from March 2015 demonstrated moderate concentric LVH with an ejection fraction of 75% along with stage I diastolic dysfunction. Right ventricular systolic pressure was estimated to be 26 mmHg. The patient is a lifelong non-smoker. 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 The patient underwent a polysomnogram with subsequent titration study, completed in September 2017, for which it was recommended that the patient be placed on bilevel therapy with a pressure setting of 18/12 cm of water with humidification. Pulmonary function testing also completed in September 2017 revealed no evidence of a large airways obstructive ventilatory defect. There was no significant response to aerosolized bronchodilators. Lung volumes revealed a trend towards air-trapping. Diffusing capacity was moderately reduced at 40% of predicted. There had been a 25% reduction of the patient's DLCO since PFTs were last completed in November 2012. Repeat pulmonary function testing was then completed in May 2018, which revealed the presence of a moderate restrictive ventilatory defect with a disproportionate severe reduction in diffusing capacity. There had been worsening in the degree of her restriction along with a reduction in DLCO. A 6 minute walk test revealed exertional oxygen desaturation, for which was recommended at 2 L/min of supplemental oxygen be utilized with exertion. Past Medical History Past Medical History (Chronic Problems): Chronic Problems (Last Updated 10/20/18 @ 21:32 by Osvaldo Franco DO) CKD (chronic kidney disease), stage III (Chronic) Spinal stenosis (Chronic) Hyperlipidemia (Chronic) Old myocardial infarction (Chronic) NONSTEMI March 2015 Chronic constipation (Chronic) MYRNA (obstructive sleep apnea) (Chronic) Chronic hypoxemic respiratory failure (Chronic) Anxiety (Chronic) Hypothyroid (Chronic) Low back pain radiating to right lower extremity (Chronic) CKD (chronic kidney disease), stage II (Chronic) HTN (hypertension) (Chronic) Idiopathic pulmonary fibrosis (Chronic) Chronic renal failure, stage 3 (moderate) (Chronic) Fibromyalgia (Chronic) Somatic dysfunction of rib cage region (Chronic) Stented coronary artery (Chronic) 2 stents to the RCA in March by Dr. Irvin; PCI-BMS-RCA X 2 03/16/15; [facility] w/PCI JORDAN-RCA 04/10/17 CAD (coronary artery disease) (Chronic) Morbid obesity (Chronic) GERD (gastroesophageal reflux disease) (Chronic) Medical History: Medical History (Last Updated 10/20/18 @ 21:32 by Osvaldo Franco DO) Spinal stenosis (Chronic) M48.00 Hyperlipidemia (Chronic) E78.5 Old myocardial infarction (Chronic) I25.2 NONSTEMI March 2015 Chronic constipation (Chronic) K59.09 Idiopathic pulmonary fibrosis (Suspected) J84.112 MYRNA (obstructive sleep apnea) (Chronic) G47.33 Chronic hypoxemic respiratory failure (Chronic) J96.11 Anxiety (Chronic) F41.9 Hypothyroid (Chronic) E03.9 Low back pain radiating to right lower extremity (Chronic) M54.5 CKD (chronic kidney disease), stage II (Chronic) N18.2 HTN (hypertension) (Chronic) I10 Idiopathic pulmonary fibrosis (Chronic) J84.112 Chest pain (Resolved) R07.9 Parotitis (Resolved) K11.20 Chronic renal failure, stage 3 (moderate) (Chronic) N18.3 Fibromyalgia (Chronic) Atypical chest pain (Acute) R07.89 Somatic dysfunction of rib cage region (Chronic) M99.08 CAD (coronary artery disease) (Chronic) I25.10 Morbid obesity (Chronic) E66.01 GERD (gastroesophageal reflux disease) (Chronic) K21.9 Atherosclerotic heart disease [place] coronary artery w/angina pectoris I25.119 Body mass index (BMI) 40.0-44.9, adult Z68.41 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 Chronic kidney disease, stage 3 N18.3 [place] (dyspnea on exertion) R06.09 Hyperlipidemia E78.5 Hypothyroidism E03.9 Multi-vessel coronary artery stenosis I25.10 Obesity E66.9 Old myocardial infarction I25.2 Shortness of breath R06.02 H/O: hysterectomy Z90.710 Allergies codeine Allergy (Verified 10/20/18 15:09) Shortness of breath Penicillins Allergy (Verified 10/20/18 15:09) Shortness of breath Sulfa (Sulfonamide Antibiotics) Allergy (Verified 10/20/18 15:09) Shortness of breath atorvastatin Adverse Reaction (Intermediate, Verified 10/20/18 15:09) Myalgias Home Medications: Ambulatory Orders Medication Instructions Recorded Nitroglycerin [Nitrostat] 0.4 mg SUBLINGUAL Q5M PRN 03/29/16 Oxygen, Home [Home Oxygen] 2 lpm NASAL CONT 04/03/16 c-pap MISCELLANEOUS 11/11/17 aspirin 81 mg tablet,delayed 81 mg PO QDAY #30 tab 12/08/17 release lisinopril 10 mg tablet 10 mg PO DAILY #30 tab 12/08/17 cholecalciferol (vitamin D3) 2,000 2,000 unit PO QDAY tab 12/17/17 unit tablet fentanyl 12 mcg/hr transdermal 1 patch TRANSDERMAL Q72H 01/13/18 patch ranitidine 300 mg tablet 300 mg PO QDAY tab 01/15/18 metoprolol succinate ER 25 mg 25 mg PO DAILY #30 tab 01/23/18 tablet,extended release 24 hr gabapentin 400 mg capsule 800 mg PO QHS #180 cap 02/05/18 clopidogrel 75 mg tablet 75 mg PO DAILY #90 tab 03/20/18 linaclotide 145 mcg capsule 145 mcg PO QDAY #90 cap 04/01/18 furosemide 40 mg tablet 40 mg PO DAILY #90 tab 05/05/18 albuterol sulfate HFA 90 2 puff INHALATION Q4H PRN #18 g 07/31/18 mcg/actuation aerosol inhaler amitriptyline 25 mg tablet 50 mg PO QDAY tab 07/31/18 loratadine 10 mg capsule 10 mg PO DAILY #90 cap 08/07/18 omeprazole 40 mg capsule,delayed 40 mg PO DAILY #90 cap 08/07/18 release trazodone 50 mg tablet 50 mg PO QHS PRN #90 tab 08/11/18 guaifenesin ER 1,200 mg tablet, 1,200 mg PO Q12H #14 tab 09/02/18 extended release 12 hr duloxetine 20 mg capsule,delayed 60 mg PO BID #180 cap 09/09/18 release gabapentin 300 mg capsule 300 mg PO BID #180 cap 09/09/18 levothyroxine 25 mcg tablet 25 mcg PO DAILY #90 tab 09/09/18 montelukast 10 mg tablet 10 mg PO DAILY #90 tab 09/09/18 pravastatin 40 mg tablet 40 mg PO QHS #90 tab 09/09/18 lorazepam 0.5 mg tablet 0.5 mg PO QHS PRN #30 tab 09/21/18 Albuterol Sulfate 2.5 mg IH Q4H PRN PRN 10/21/18 Ciprofloxacin HCl 500 mg PO BID 10/21/18 Gabapentin [Neurontin] 300 mg PO DAILY 10/21/18 Gabapentin [Neurontin] 400 mg PO QHS 10/21/18 Levothyroxine [Synthroid] 25 mcg PO DAILY 10/21/18 Linacolotide [Linzess] 145 mcg PO DAILY 10/21/18 Lorazepam [Ativan] 0.5 mg PO Q4H PRN PRN 10/21/18 Meclizine HCl [Antivert] 25 mg PO TID PRN PRN 10/21/18 Methadone HCl [Dolophine] 5 mg PO Q12H 10/21/18 Metoprolol Succinate 25 mg PO DAILY 10/21/18 Surgical History: Surgical History (Last Reviewed 10/02/18 @ 19:13 by Shivani Medellin NP-C) Stented coronary artery (Chronic) 2 stents to the RCA in March by Dr. Irvin; PCI-BMS-RCA X 2 03/16/15; [facility] w/PCI JORDAN-RCA 04/10/17 S/P lumpectomy, right breast Z98.890 STATUS POST CARDIAC STENT PLACEMENT Surgical History: no surgical history, hysterectomy, - - 2 coronary stents into the RCA in March 2015. Kidney Stones. 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 Lives: Alone Smoking Status: Never smoker Tobacco Use: Non-smoker Alcohol: None Drugs: None - *Family History Maternal Family History: Family History (Last Reviewed 10/02/18 @ 19:13 by Shivani Medellin NP-Justin) Sister Hypertension COPD (chronic obstructive pulmonary disease) Mother Dementia History Items: Hypertension Paternal Family History: Family History (Last Reviewed 10/02/18 @ 19:13 by NELLA Coronado) Sister Hypertension COPD (chronic obstructive pulmonary disease) Mother Dementia History Items: No pertinent history Sibling Family History: Family History (Last Reviewed 10/02/18 @ 19:13 by NELLA Coronado) Sister Hypertension COPD (chronic obstructive pulmonary disease) Mother Dementia History Items: Heart Disease Review of Systems Constitutional: Denies: Anorexia, Chills, Night Sweats Eyes: Denies: Blurred vision, Double vision HEENT: Denies: Head Aches, Sinus Congestion, Sinus Drainage Cardiovascular: Denies: Chest Pain, Palpitations Respiratory: Reports: Shortness of Breath. Denies: Cough Gastrointestinal: Denies: Abdominal Pain, Nausea, Vomiting Genitourinary: Denies: Dysuria Musculoskeletal: Denies: Joint Pain, Joint Tenderness Skin: Denies: Rash, Wounds Neurological: Denies: Numbness, Tingling, Focal weakness Psychiatric: Reports: Anxiety Hematologic/ Lymphatic: Denies: Easy Bruising, Easy Bleeding Patient Problems: Active and Suspected Problems (Last Updated 10/20/18 @ 21:32 by Osvaldo Franco DO) Shortness of breath (Acute) Objective: The patient's most recent lab work, culture data and imaging studies have all been personally reviewed. Blood cultures and respiratory viral panel are pending. - Physical Exam General: Alert, Cooperative, No apparent distress, - - Morbidly obese. Intermittently confused. HEENT: Atraumatic, PERRLA, Normocephalic Oral: No Gingival or Mucosal Lesions/ Ulcerations Neck: Supple, No Nodes, Trachea Midline Lungs: No rhonchi, No wheeze, Diminished, Rales Cardiovascular: Regular rate, Regular Rhythm, Normal S1, Normal S2, No murmurs Abdomen: Bowel Sounds Present, Soft, Non Tender, Obese Extremities: No clubbing, No cyanosis, Edema Skin: No breakdown Musculoskeletal: No Muscle Wasting Lymphatic: No Cervical, Supraclavicular, or Inguinal Adenopathy Neurological: Cranial nerves II-XII grossly intact, Neuro grossly intact Psych/Mental Status: Anxious Vital Signs Temp Pulse Resp BP Pulse Ox 36.8 C 92 21 H 137/75 H 100 10/21/18 00:00 10/21/18 06:35 10/21/18 06:35 10/21/18 06:00 10/21/18 06:35 Oxygen Flow Rate (L/min) 15 Oxygen Delivery Method Bi-pap Weight: 262 lb 9.129 oz Body Mass Index (BMI) 45.1 Intake and Output for Last 24 Hours 10/19/18 10/20/18 10/21/18 23:59 23:59 23:59 Intake Total 247 / 247 495 / 495 Output Total 500 / 500 Balance 247 / 247 -5 / -5 Laboratory Tests Past 24 Hrs 10/20/18 10/20/18 10/20/18 15:24 15:24 15:24 WBC Cancelled Corrected WBC Cancelled RBC Cancelled Hgb Cancelled Hct Cancelled MCV Cancelled MCH Cancelled MCHC Cancelled RDW Cancelled RDW Differential Cancelled Plt Count Cancelled MPV Cancelled Immature Gran % (Auto) Cancelled Neut % (Auto) Cancelled Lymph % (Auto) Cancelled [place] % (Auto) Cancelled Eos % (Auto) Cancelled Baso % (Auto) Cancelled Immature Gran # (Auto) Cancelled Absolute Neuts (auto) Cancelled Absolute Lymphs (auto) Cancelled Absolute Monos (auto) Cancelled Total Counted Cancelled Neutrophils % (Manual) Cancelled Band Neutrophils % Cancelled Lymphocytes % (Manual) Cancelled Monocytes % (Manual) Cancelled Eosinophils % (Manual) Cancelled Basophils % (Manual) Cancelled Metamyelocytes % Cancelled Myelocytes % Cancelled Promyelocytes % Cancelled Blast Cells % Cancelled Plasma Cell % (Manual) Cancelled Other Cells % Cancelled Lymphocytes # Cancelled Nucleated RBCs/100 WBC Cancelled Differential Comment Cancelled Diff Path Review Cancelled Hypersegmented Neuts Cancelled Atypical Lymphocytes Cancelled Reactive Lymphocytes Cancelled Smudge Cells Cancelled Eosinophilia # Cancelled Basophilia # Cancelled Toxic Granulation Cancelled Dohle Bodies Cancelled Good Rods Cancelled Platelet Estimate Cancelled Plt Morphology Comment Cancelled RBC Morphology Cancelled Polychromasia Cancelled Hypochromasia Cancelled Poikilocytosis Cancelled Basophilic Stippling Cancelled Anisocytosis Cancelled Microcytosis Cancelled Macrocytosis Cancelled Spherocytes Cancelled Sickle Cells Cancelled Target Cells Cancelled Tear Drop Cells Cancelled Ovalocytes Cancelled Stomatocytes Cancelled Myrick-Radcliff Bodies Cancelled [place] Cells Cancelled Bite Cells Cancelled Acanthocytes (Spur) Cancelled Rouleaux Cancelled Schistocytes Cancelled Specimen Type Sample Site pH Bicarbonate Actual POC Total CO2 Base Excess O2 Saturation ABG pCO2 ABG pO2 Noah Test O2 Delivery Device Liter Flow Blood Gas Notified Whom Blood Gas Notified Time Sodium 139 Potassium 4.7 Chloride 106 Carbon Dioxide 25.0 Anion Gap 8 BUN 36 H Creatinine 1.76 H Estim Creat Clear Calc 26.00 Est GFR (MDRD) Af Amer 36 L Est GFR (MDRD) Non-Af 30 L BUN/Creatinine Ratio 20.5 H Glucose 89 Lactic Acid Calcium 8.4 L Troponin I < 0.015 B-Natriuretic Peptide Cancelled 10/20/18 10/20/18 10/20/18 15:38 17:00 17:05 WBC 10.0 Corrected WBC RBC 3.67 L Hgb 10.4 L Hct 33.9 L MCV 92.4 MCH 28.3 MCHC 30.7 L RDW 14.5 RDW Differential 47.5 H Plt Count 83 L MPV 10.1 Immature Gran % (Auto) 0.500 Neut % (Auto) 69.9 Lymph % (Auto) 16.6 L [place] % (Auto) 9.4 Eos % (Auto) 3.3 Baso % (Auto) 0.3 Immature Gran # (Auto) Absolute Neuts (auto) 7.0 Absolute Lymphs (auto) 1.65 Absolute Monos (auto) Total Counted Not Reportable Neutrophils % (Manual) Band Neutrophils % Lymphocytes % (Manual) Monocytes % (Manual) Eosinophils % (Manual) Basophils % (Manual) Metamyelocytes % Myelocytes % Promyelocytes % Blast Cells % Plasma Cell % (Manual) Other Cells % Lymphocytes # Nucleated RBCs/100 WBC Differential Comment Diff Path Review Hypersegmented Neuts Atypical Lymphocytes Reactive Lymphocytes Smudge Cells Eosinophilia # Basophilia # Toxic Granulation Dohle Bodies Good Rods Platelet Estimate Plt Morphology Comment RBC Morphology Polychromasia Hypochromasia Poikilocytosis Basophilic Stippling Anisocytosis Microcytosis Macrocytosis Spherocytes Sickle Cells Target Cells Tear Drop Cells Ovalocytes Stomatocytes Myrick-Radcliff Bodies Hortencia Cells Bite Cells Acanthocytes (Spur) Rouleaux Schistocytes Specimen Type ART Sample Site L Radial pH 7.27 L Bicarbonate Actual 28.5 H POC Total CO2 30 Base Excess 2 O2 Saturation 98 ABG pCO2 62.2 H ABG pO2 133 H Noah Test NA O2 Delivery Device NRB Mask Liter Flow 15.0 Blood Gas Notified Whom ED Blood Gas Notified Time 1530 Sodium Potassium Chloride Carbon Dioxide Anion Gap BUN Creatinine Estim Creat Clear Calc Est GFR (MDRD) Af Amer Est GFR (MDRD) Non-Af BUN/Creatinine Ratio Glucose Lactic Acid 0.6 Calcium Troponin I B-Natriuretic Peptide 10/20/18 10/21/18 10/21/18 17:05 04:05 04:05 WBC 7.2 Corrected WBC RBC 3.61 L Hgb 10.3 L Hct 33.2 L MCV 92.0 MCH 28.5 MCHC 31.0 L RDW 14.1 RDW Differential 46.1 H Plt Count 217 MPV 9.3 Immature Gran % (Auto) Neut % (Auto) Lymph % (Auto) [place] % (Auto) Eos % (Auto) Baso % (Auto) Immature Gran # (Auto) Absolute Neuts (auto) Absolute Lymphs (auto) Absolute Monos (auto) Total Counted Neutrophils % (Manual) Band Neutrophils % Lymphocytes % (Manual) Monocytes % (Manual) Eosinophils % (Manual) Basophils % (Manual) Metamyelocytes % Myelocytes % Promyelocytes % Blast Cells % Plasma Cell % (Manual) Other Cells % Lymphocytes # Nucleated RBCs/100 WBC Differential Comment Diff Path Review Hypersegmented Neuts Atypical Lymphocytes Reactive Lymphocytes Smudge Cells Eosinophilia # Basophilia # Toxic Granulation Dohle Bodies Good Rods Platelet Estimate Plt Morphology Comment RBC Morphology Polychromasia Hypochromasia Poikilocytosis Basophilic Stippling Anisocytosis Microcytosis Macrocytosis Spherocytes Sickle Cells Target Cells Tear Drop Cells Ovalocytes Stomatocytes Myrick-Radcliff Bodies Hortencia Cells Bite Cells Acanthocytes (Spur) Rouleaux Schistocytes Specimen Type Sample Site pH Bicarbonate Actual POC Total CO2 Base Excess O2 Saturation ABG pCO2 ABG pO2 Noah Test O2 Delivery Device Liter Flow Blood Gas Notified Whom Blood Gas Notified Time Sodium 141 Potassium 4.5 Chloride 106 Carbon Dioxide 27.0 Anion Gap 8 BUN 32 H Creatinine 1.63 H Estim Creat Clear Calc 26.94 Est GFR (MDRD) Af Amer 40 L Est GFR (MDRD) Non-Af 33 L BUN/Creatinine Ratio 19.6 Glucose 135 H Lactic Acid Calcium 8.4 L Troponin I < 0.015 B-Natriuretic Peptide 78.3 Clinical Impression(s) from Imaging Studies Chest X-Ray 10/20/18 15:09 IMPRESSION: Stable examination. Electronically Signed: Bernabe Norwood MD at 15:45 EST Tel [phone], Service support , Chest X-Ray 10/20/18 17:05 IMPRESSION: Right IJ line terminates in the SVC at the right atrial junction. No acute process. Electronically Signed: Amaris Barr MD at 17:57 EST Tel , Service support , Chest X-Ray 10/21/18 05:55 IMPRESSION: No acute cardiopulmonary disease. Electronically Signed: Raman Schwab MD at 5:44 EST , Service support , Assessment/Plan Active and Suspected Problems (Last Updated 10/20/18 @ 21:32 by Osvaldo Franco DO) Shortness of breath (Acute) RECOMMENDATIONS: 1. Discontinue scheduled aerosol treatments and steroids. 2. Continue baseline 2 L/min supplemental oxygen requirement. 3. Encourage incentive spirometer use. 4. Recommend physical therapy evaluation. 5. Discontinue supplemental IV fluids and advance diet. 6. We will plan to have a formal family discussion regarding goals of care and potential re-enrollment with hospice care services. IMPRESSIONS: 1. Acute on chronic hypoxemic respiratory failure The patient has a history of restrictive lung mechanics due to presumptive idiopathic pulmonary fibrosis. She has been followed longitudinally in the pulmonary medicine clinic. At her last office visit, the patient was referred to hospice care. However, the patient recently revoked her hospice care services noting that she was having a heart attack and wanted to be evaluated at the hospital. She has a baseline 2 L/min supplemental oxygen requirement and was scheduled to undergo repeat pulmonary function testing and CT chest in the upcoming months. The patient was able to be weaned quickly from noninvasive positive pressure ventilation is currently maintaining appropriate oxygen saturations on her baseline 2 L/min requirement. She has no readily identifiable pulmonary infectious process. Given that the patient has restrictive lung mechanics and no evidence of COPD, aerosol treatments can be discontinued. IV Solu-Medrol can also be discontinued from my perspective. Discontinue supplemental IV fluids and advance diet. 2. Radiographic findings concerning for idiopathic pulmonary fibrosis The patient has been followed longitudinally in the pulmonary medicine clinic. This is a progressive disease in the patient's symptoms will likely continue to worsen with time, as well her supplemental oxygen requirement. Recommend repeating a walk test prior to consideration for discharge from the hospital. 3. Obstructive sleep apnea The patient has been compliant with use of nocturnal Pap therapy. She is currently prescribed a BiPAP pressure support setting of 18/12 centimeters of water with humidification. Recommend continuation of nocturnal BiPAP therapy while admitted to the hospital. 4. Morbid obesity/depression/anxiety Complicates care, management, recovery and prognosis. Okay to continue home medications from my perspective. This note was generated with [employer] dictation software. It may contain incorrect words, spelling, and punctuation that were not noted in checking the note before signing. DISPOSITION: The patient is medically stable for transfer out of the intensive care unit. Code Visit Inpatient E&M: 46376 Init Hosp L3
--- NOTE | 2018-10-21 07:38 | CON.PCM_ITS ---
Reason for Consult Date of Consultation: 10/21/18 Reason for Consultation: Acute on chronic respiratory failure History of Present Illness: The patient is a 73-year-old female, with a history as outlined below, who presented to the emergency department on October 20 with complaints of worsening shortness of breath and hypoxia. The patient is an established patient of mine from the pulmonary medicine clinic. She has a known history of coronary artery disease for which she is status post PCI, along with hypertension, hyperlipidemia and morbid obesity. She follows with Dr. Elias of cardiology on an outpatient basis. The patient has a presumptive diagnosis of underlying idiopathic pulmonary fibrosis, which appears to have progressed with time. She was last seen in the pulmonary medicine clinic by our nurse practitioner on October 02. At that time, there were plans to repeat the jarocho devang's PFTs and CT of her chest in 3 months. Given the progression of her symptoms, a referral appears to have been placed to hospice care. A previous noncontrasted chest CT from February 2015 demonstrated interstitial fibrotic changes in the lungs. The patient's last surface echocardiogram from March 2015 demonstrated moderate concentric LVH with an ejection fraction of 75% along with stage I diastolic dysfunction. Right ventricular systolic pressure was estimated to be 26 mmHg. The patient is a lifelong non-smoker. 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 The patient underwent a polysomnogram with subsequent titration study, completed in September 2017, for which it was recommended that the patient be placed on bilevel therapy with a pressure setting of 18/12 cm of water with humidification. Pulmonary function testing also completed in September 2017 revealed no evidence of a large airways obstructive ventilatory defect. There was no significant response to aerosoliz ed bronchodilators. Lung volumes revealed a trend towards air-trapping. Diffusing capacity was moderately reduced at 40% of predicted. There had been a 25% reduction of the patient's DLCO since PFTs were last completed in November 2012. Repeat pulmonary function testing was then completed in May 2018, which revealed the presence of a moderate restrictive ventilatory defect with a disproportionate severe reduction in diffusing capacity. There had been worsening in the degree of her restriction along with a reduction in DLCO. A 6 minute walk test revealed exertional oxygen desaturation, for which was recommended at 2 L/min of supplemental oxygen be utilized with exertion. Past Medical History Past Medical History (Chronic Problems): Chronic Problems (Last Updated 10/20/18 @ 21:32 by Osvaldo Franco DO) CKD (chronic kidney disease), stage III (Chronic) Spinal stenosis (Chronic) Hyperlipidemia (Chronic) Old myocardial infarction (Chronic) NONSTEMI March 2015 Chronic constipation (Chronic) MYRNA (obstructive sleep apnea) (Chronic) Chronic hypoxemic respiratory failure (Chronic) Anxiety (Chronic) Hypothyroid (Chronic) Low back pain radiating to right lower extremity (Chronic) CKD (chronic kidney disease), stage II (Chronic) HTN (hypertension) (Chronic) Idiopathic pulmonary fibrosis (Chronic) Chronic renal failure, stage 3 (moderate) (Chronic) Fibromyalgia (Chronic) Somatic dysfunction of rib cage region (Chronic) Stented coronary artery (Chronic) 2 stents to the RCA in March by Dr. Irvin; PCI-BMS-RCA X 2 03/16/15; [facility] w/PCI JORDAN-RCA 04/10/17 CAD (coronary artery disease) (Chronic) Morbid obesity (Chronic) GERD (gastroesophageal reflux disease) (Chronic) Medical History: Medical History (Last Updated 10/20/18 @ 21:32 by Osvaldo Franco DO) Spinal stenosis (Chronic) M48.00 Hyperlipidemia (Chronic) E78.5 Old myocardial infarction (Chronic) I25.2 NONSTEMI March 2015 Chronic constipation (Chronic) K59.09 Idiopathic pulmonary fibrosis (Suspected) J84.112 MYRNA (obstructive sleep apnea) (Chronic) G47.33 Chronic hypoxemic respiratory failure (Chronic) J96.11 Anxiety (Chronic) F41.9 Hypothyroid (Chronic) E03.9 Low back pain radiating to right lower extremity (Chronic) M54.5 CKD (chronic kidney disease), stage II (Chronic) N18.2 HTN (hypertension) (Chronic) I10 Idiopathic pulmonary fibrosis (Chronic) J84.112 Chest pain (Resolved) R07.9 Parotitis (Resolved) K11.20 Chronic renal failure, stage 3 (moderate) (Chronic) N18.3 Fibromyalgia (Chronic) Atypical chest pain (Acute) R07.89 Somatic dysfunction of rib cage region (Chronic) M99.08 CAD (coronary artery disease) (Chronic) I25.10 Morbid obesity (Chronic) E66.01 GERD (gastroesophageal reflux disease) (Chronic) K21.9 Atherosclerotic heart disease [place] coronary artery w/angina pectoris I25.119 Body mass index (BMI) 40.0-44.9, adult Z68.41 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 Chronic kidney disease, stage 3 N18.3 GALLOWAY (dyspnea on exertion) R06.09 Hyperlipidemia E78.5 Hypothyroidism E03.9 Multi-vessel coronary artery stenosis I25.10 Obesity E66.9 Old myocardial infarction I25.2 Shortness of breath R06.02 H/O: hysterectomy Z90.710 Allergies codeine Allergy (Verified 10/20/18 15:09) Shortness of breath Penicillins Allergy (Verified 10/20/18 15:09) Shortness of breath Sulfa (Sulfonamide Antibiotics) Allergy (Verified 10/20/18 15:09) Shortness of breath atorvastatin Adverse Reaction (Intermediate, Verified 10/20/18 15:09) Myalgias Home Medications: Ambulatory Orders Medication Instructions Recorded Nitroglycerin [Nitrostat] 0.4 mg SUBLINGUAL Q5M PRN 03/29/16 Oxygen, Home [Home Oxygen] 2 lpm NASAL CONT 04/03/16 c-pap MISCELLANEOUS 11/11/17 aspirin 81 mg tablet,delayed 81 mg PO QDAY #30 tab 12/08/17 release lisinopril 10 mg tablet 10 mg PO DAILY #30 tab 12/08/17 cholecalciferol (vitamin D3) 2,000 2,000 unit PO QDAY tab 12/17/17 unit tablet fentanyl 12 mcg/hr transdermal 1 patch TRANSDERMAL Q72H 01/13/18 patch ranitidine 300 mg tablet 300 mg PO QDAY tab 01/15/18 metoprolol succinate ER 25 mg 25 mg PO DAILY #30 tab 01/23/18 tablet,extended release 24 hr gabapentin 400 mg capsule 800 mg PO QHS #180 cap 02/05/18 clopidogrel 75 mg tablet 75 mg PO DAILY #90 tab 03/20/18 linaclotide 145 mcg capsule 145 mcg PO QDAY #90 cap 04/01/18 furosemide 40 mg tablet 40 mg PO DAILY #90 tab 05/05/18 albuterol sulfate HFA 90 2 puff INHALATION Q4H PRN #18 g 07/31/18 mcg/actuation aerosol inhaler amitriptyline 25 mg tablet 50 mg PO QDAY tab 07/31/18 loratadine 10 mg capsule 10 mg PO DAILY #90 cap 08/07/18 omeprazole 40 mg capsule,delayed 40 mg PO DAILY #90 cap 08/07/18 release trazodone 50 mg tablet 50 mg PO QHS PRN #90 tab 08/11/18 guaifenesin ER 1,200 mg tablet, 1,200 mg PO Q12H #14 tab 09/02/18 extended release 12 hr duloxetine 20 mg capsule,delayed 60 mg PO BID #180 cap 09/09/18 release gabapentin 300 mg capsule 300 mg PO BID #180 cap 09/09/18 levothyroxine 25 mcg tablet 25 mcg PO DAILY #90 tab 09/09/18 montelukast 10 mg tablet 10 mg PO DAILY #90 tab 09/09/18 pravastatin 40 mg tablet 40 mg PO QHS #90 tab 09/09/18 lorazepam 0.5 mg tablet 0.5 mg PO QHS PRN #30 tab 09/21/18 Albuterol Sulfate 2.5 mg IH Q4H PRN PRN 10/21/18 Ciprofloxacin HCl 500 mg PO BID 10/21/18 Gabapentin [Neurontin] 300 mg PO DAILY 10/21/18 Gabapentin [Neurontin] 400 mg PO QHS 10/21/18 Levothyroxine [Synthroid] 25 mcg PO DAILY 10/21/18 Linacolotide [Linzess] 145 mcg PO DAILY 10/21/18 Lorazepam [Ativan] 0.5 mg PO Q4H PRN PRN 10/21/18 Meclizine HCl [Antivert] 25 mg PO TID PRN PRN 10/21/18 Methadone HCl [Dolophine] 5 mg PO Q12H 10/21/18 Metoprolol Succinate 25 mg PO DAILY 10/21/18 Surgical History: Surgical History (Last Reviewed 10/02/18 @ 19:13 by Shivani Medellin NP-C) Stented coronary artery (Chronic) 2 stents to the RCA in March by Dr. Irvin; PCI-BMS-RCA X 2 03/16/15; [facility] w/PCI JORDAN-RCA 04/10/17 S/P lumpectomy, right breast Z98.890 STATUS POST CARDIAC STENT PLACEMENT Surgical History: no surgical history, hysterectomy, - - 2 coronary stents into the RCA in March 2015. Kidney Stones. 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 Lives: Alone Smoking Status: Never smoker Tobacco Use: Non-smoker Alcohol: None Drugs: None - *Family History Maternal Family History: Family History (Last Reviewed 10/02/18 @ 19:13 by NELLA Coronado) Sister Hypertension COPD (chronic obstructive pulmonary disease) Mother Dementia History Items: Hypertension Paternal Family History: Family History (Last Reviewed 10/02/18 @ 19:13 by NELLA Coronado) Sister Hypertension COPD (chronic obstructive pulmonary disease) Mother Dementia History Items: No pertinent history Sibling Family History: Family History (Last Reviewed 10/02/18 @ 19:13 by NELLA Coronado) Sister Hypertension COPD (chronic obstructive pulmonary disease) Mother Dementia History Items: Heart Disease Review of Systems Constitutional: Denies: Anorexia, Chills, Night Sweats Eyes: Denies: Blurred vision, Double vision HEENT: Denies: Head Aches, Sinus Congestion, Sinus Drainage Cardiovascular: Denies: Chest Pain, Palpitations Respiratory: Reports: Shortness of Breath. Denies: Cough Gastrointestinal: Denies: Abdominal Pain, Nausea, Vomiting Genitourinary: Denies: Dysuria Musculoskeletal: Denies: Joint Pain, Joint Tenderness Skin: Denies: Rash, Wounds Neurological: Denies: Numbness, Tingling, Focal weakness Psychiatric: Reports: Anxiety Hematologic/ Lymphatic: Denies: Easy Bruising, Easy Bleeding Patient Problems: Active and Suspected Problems (Last Updated 10/20/18 @ 21:32 by Osvaldo Franco DO) Shortness of breath (Acute) Objective: The patient's most recent lab work, culture data and imaging studies have all been personally reviewed. Blood cultures and respiratory viral panel are pending. - Physical Exam General: Alert, Cooperative, No apparent distress, - - Morbidly obese. Intermittently confused. HEENT: Atraumatic, PERRLA, Normocephalic Oral: No Gingival or Mucosal Lesions/ Ulcerations Neck: Supple, No Nodes, Trachea Midline Lungs: No rhonchi, No wheeze, Diminished, Rales Cardiovascular: Regular rate, Regular Rhythm, Normal S1, Normal S2, No murmurs Abdomen: Bowel Sounds Present, Soft, Non Tender, Obese Extremities: No clubbing, No cyanosis, Edema Skin: No breakdown Musculoskeletal: No Muscle Wasting Lymphatic: No Cervical, Supraclavicular, or Inguinal Adenopathy Neurological: Cranial nerves II-XII grossly intact, Neuro grossly intact Psych/Mental Status: Anxious Vital Signs Temp Pulse Resp BP Pulse Ox 36.8 C 92 21 H 137/75 H 100 10/21/18 00:00 10/21/18 06:35 10/21/18 06:35 10/21/18 06:00 10/21/18 06:35 Oxygen Flow Rate (L/min) 15 Oxygen Delivery Method Bi-pap Weight: 262 lb 9.129 oz Body Mass Index (BMI) 45.1 Intake and Output for Last 24 Hours 10/19/18 10/20/18 10/21/18 23:59 23:59 23:59 Intake Total 247 / 247 495 / 495 Output Total 500 / 500 Balance 247 / 247 -5 / -5 Laboratory Tests Past 24 Hrs 10/20/18 10/20/18 10/20/18 15:24 15:24 15:24 WBC Cancelled Corrected WBC Cancelled RBC Cancelled Hgb Cancelled Hct Cancelled MCV Cancelled MCH Cancelled MCHC Cancelled RDW Cancelled RDW Differential Cancelled Plt Count Cancelled MPV Cancelled Immature Gran % (Auto) Cancelled Neut % (Auto) Cancelled Lymph % (Auto) Cancelled [place]lin % (Auto) Cancelled Eos % (Auto) Cancelled Baso % (Auto) Cancelled Immature Gran # (Auto) Cancelled Absolute Neuts (auto) Cancelled Absolute Lymphs (auto) Cancelled Absolute Monos (auto) Cancelled Total Counted Cancelled Neutrophils % (Manual) Cancelled Band Neutrophils % Cancelled Lymphocytes % (Manual) Cancelled Monocytes % (Manual) Cancelled Eosinophils % (Manual) Cancelled Basophils % (Manual) Cancelled Metamyelocytes % Cancelled Myelocytes % Cancelled Promyelocytes % Cancelled Blast Cells % Cancelled Plasma Cell % (Manual) Cancelled Other Cells % Cancelled Lymphocytes # Cancelled Nucleated RBCs/100 WBC Cancelled Differential Comment Cancelled Diff Path Review Cancelled Hypersegmented Neuts Cancelled Atypical Lymphocytes Cancelled Reactive Lymphocytes Cancelled Smudge Cells Cancelled Eosinophilia # Cancelled Basophilia # Cancelled Toxic Granulation Cancelled Dohle Bodies Cancelled Good Rods Cancelled Platelet Estimate Cancelled Plt Morphology Comment Cancelled RBC Morphology Cancelled Polychromasia Cancelled Hypochromasia Cancelled Poikilocytosis Cancelled Basophilic Stippling Cancelled Anisocytosis Cancelled Microcytosis Cancelled Macrocytosis Cancelled Spherocytes Cancelled Sickle Cells Cancelled Target Cells Cancelled Tear Drop Cells Cancelled Ovalocytes Cancelled Stomatocytes Cancelled [place] Bodies Cancelled [place] Cells Cancelled Bite Cells Cancelled Acanthocytes (Spur) Cancelled Rouleaux Cancelled Schistocytes Cancelled Specimen Type Sample Site pH Bicarbonate Actual POC Total CO2 Base Excess O2 Saturation ABG pCO2 ABG pO2 Noah Test O2 Delivery Device Liter Flow Blood Gas Notified Whom Blood Gas Notified Time Sodium 139 Potassium 4.7 Chloride 106 Carbon Dioxide 25.0 Anion Gap 8 BUN 36 H Creatinine 1.76 H Estim Creat Clear Calc 26.00 Est GFR (MDRD) Af Amer 36 L Est GFR (MDRD) Non-Af 30 L BUN/Creatinine Ratio 20.5 H Glucose 89 Lactic Acid Calcium 8.4 L Troponin I < 0.015 B-Natriuretic Peptide Cancelled 10/20/18 10/20/18 10/20/18 15:38 17:00 17:05 WBC 10.0 Corrected WBC RBC 3.67 L Hgb 10.4 L Hct 33.9 L MCV 92.4 MCH 28.3 MCHC 30.7 L RDW 14.5 RDW Differential 47.5 H Plt Count 83 L MPV 10.1 Immature Gran % (Auto) 0.500 Neut % (Auto) 69.9 Lymph % (Auto) 16.6 L [place] % (Auto) 9.4 Eos % (Auto) 3.3 Baso % (Auto) 0.3 Immature Gran # (Auto) Absolute Neuts (auto) 7.0 Absolute Lymphs (auto) 1.65 Absolute Monos (auto) Total Counted Not Reportable Neutrophils % (Manual) Band Neutrophils % Lymphocytes % (Manual) Monocytes % (Manual) Eosinophils % (Manual) Basophils % (Manual) Metamyelocytes % Myelocytes % Promyelocytes % Blast Cells % Plasma Cell % (Manual) Other Cells % Lymphocytes # Nucleated RBCs/100 WBC Differential Comment Diff Path Review Hypersegmented Neuts Atypical Lymphocytes Reactive Lymphocytes Smudge Cells Eosinophilia # Basophilia # Toxic Granulation Dohle Bodies Good Rods Platelet Estimate Plt Morphology Comment RBC Morphology Polychromasia Hypochromasia Poikilocytosis Basophilic Stippling Anisocytosis Microcytosis Macrocytosis Spherocytes Sickle Cells Target Cells Tear Drop Cells Ovalocytes Stomatocytes [place] Bodies Tyler Cells Bite Cells Acanthocytes (Spur) Rouleaux Schistocytes Specimen Type ART Sample Site L Radial pH 7.27 L Bicarbonate Actual 28.5 H POC Total CO2 30 Base Excess 2 O2 Saturation 98 ABG pCO2 62.2 H ABG pO2 133 H Noah Test NA O2 Delivery Device NRB Mask Liter Flow 15.0 Blood Gas Notified Whom ED Blood Gas Notified Time 1530 Sodium Potassium Chloride Carbon Dioxide Anion Gap BUN Creatinine Estim Creat Clear Calc Est GFR (MDRD) Af Amer Est GFR (MDRD) Non-Af BUN/Creatinine Ratio Glucose Lactic Acid 0.6 Calcium Troponin I B-Natriuretic Peptide 10/20/18 10/21/18 10/21/18 17:05 04:05 04:05 WBC 7.2 Corrected WBC RBC 3.61 L Hgb 10.3 L Hct 33.2 L MCV 92.0 MCH 28.5 MCHC 31.0 L RDW 14.1 RDW Differential 46.1 H Plt Count 217 MPV 9.3 Immature Gran % (Auto) Neut % (Auto) Lymph % (Auto) [place] % (Auto) Eos % (Auto) Baso % (Auto) Immature Gran # (Auto) Absolute Neuts (auto) Absolute Lymphs (auto) Absolute Monos (auto) Total Counted Neutrophils % (Manual) Band Neutrophils % Lymphocytes % (Manual) Monocytes % (Manual) Eosinophils % (Manual) Basophils % (Manual) Metamyelocytes % Myelocytes % Promyelocytes % Blast Cells % Plasma Cell % (Manual) Other Cells % Lymphocytes # Nucleated RBCs/100 WBC Differential Comment Diff Path Review Hypersegmented Neuts Atypical Lymphocytes Reactive Lymphocytes Smudge Cells Eosinophilia # Basophilia # Toxic Granulation Dohle Bodies Good Rods Platelet Estimate Plt Morphology Comment RBC Morphology Polychromasia Hypochromasia Poikilocytosis Basophilic Stippling Anisocytosis Microcytosis Macrocytosis Spherocytes Sickle Cells Target Cells Tear Drop Cells Ovalocytes Stomatocytes [place] Bodies Hortencia Cells Bite Cells Acanthocytes (Spur) Rouleaux Schistocytes Specimen Type Sample Site pH Bicarbonate Actual POC Total CO2 Base Excess O2 Saturation ABG pCO2 ABG pO2 Noah Test O2 Delivery Device Liter Flow Blood Gas Notified Whom Blood Gas Notified Time Sodium 141 Potassium 4.5 Chloride 106 Carbon Dioxide 27.0 Anion Gap 8 BUN 32 H Creatinine 1.63 H Estim Creat Clear Calc 26.94 Est GFR (MDRD) Af Amer 40 L Est GFR (MDRD) Non-Af 33 L BUN/Creatinine Ratio 19.6 Glucose 135 H Lactic Acid Calcium 8.4 L Troponin I < 0.015 B-Natriuretic Peptide 78.3 Clinical Impression(s) from Imaging Studies Chest X-Ray 10/20/18 15:09 IMPRESSION: Stable examination. Electronically Signed: Bernabe Norwood MD at 15:45 EST Tel [phone], Service support , Chest X-Ray 10/20/18 17:05 IMPRESSION: Right IJ line terminates in the SVC at the right atrial junction. No acute process. Electronically Signed: Amaris Barr MD at 17:57 EST Tel , Service support , Chest X-Ray 10/21/18 05:55 IMPRESSION: No acute cardiopulmonary disease. Electronically Signed: Raman Schwab MD at 5:44 EST , Service support , Assessment/Plan Active and Suspected Problems (Last Updated 10/20/18 @ 21:32 by Osvaldo Franco DO) Shortness of breath (Acute) RECOMMENDATIONS: 1. Discontinue scheduled aerosol treatments and steroids. 2. Continue baseline 2 L/min supplemental oxygen requirement. 3. Encourage incentive spirometer use. 4. Recommend physical therapy evaluation. 5. Discontinue supplemental IV fluids and advance diet. 6. We will plan to have a formal family discussion regarding goals of care and potential re-enrollment with hospice care services. IMPRESSIONS: 1. Acute on chronic hypoxemic respiratory failure The patient has a history of restrictive lung mechanics due to presumptive i diopathic pulmonary fibrosis. She has been followed longitudinally in the pulmonary medicine clinic. At her last office visit, the patient was referred to hospice care. However, the patient recently revoked her hospice care services noting that she was having a heart attack and wanted to be evaluated at the hospital. She has a baseline 2 L/min supplemental oxygen requirement and was scheduled to undergo repeat pulmonary function testing and CT chest in the upcoming months. The patient was able to be weaned quickly from noninvasive positive pressure ventilation is currently maintaining appropriate oxygen saturations on her baseline 2 L/min requirement. She has no readily identifiable pulmonary infectious process. Given that the patient has restrictive lung mechanics and no evidence of COPD, aerosol treatments can be discontinued. IV Solu-Medrol can also be discontinued from my perspective. Discontinue supplemental IV fluids and advance diet. 2. Radiographic findings concerning for idiopathic pulmonary fibrosis The patient has been followed longitudinally in the pulmonary medicine clinic. This is a progressive disease in the patient's symptoms will likely continue to worsen with time, as well her supplemental oxygen requirement. Recommend repeating a walk test prior to consideration for discharge from the hospital. 3. Obstructive sleep apnea The patient has been compliant with use of nocturnal Pap therapy. She is currently prescribed a BiPAP pressure support setting of 18/12 centimeters of water with humidification. Recommend continuation of nocturnal BiPAP therapy while admitted to the hospital. 4. Morbid obesity/depression/anxiety Complicates care, management, recovery and prognosis. Okay to continue home medications from my perspective. This note was generated with [employer] dictation software. It may contain incorrect words, spelling, and punctuation that were not noted in checking the note before signing. DISPOSITION: The patient is medically stable for transfer out of the intensive care unit. Code Visit Inpatient E&M: 03113 Init Hosp L3
--- NOTE | 2018-10-21 08:50 | PN_ITS ---
Patient Problems: Active and Suspected Problems (Last Updated 10/20/18 @ 21:32 by Osvaldo Franco DO) Shortness of breath (Acute) Subjective: Seen and examined. Patient has history of progressive idiopathic pulmonary fibrosis. Previous multiple PFTs shows progression of IPF with decreasing DLCO. Patient on BiPAP. Feels shortness of breath is better. Heart rate is regular sinus rhythm. Respiratory rate 20-26/min. On 25% FiO2 BiPAP. BiPAP changed to nasal cannula 2 L/min pulse ox 94%. Patient requesting to go home. Vitals/I&O's: Vital Signs Temp Pulse Resp BP Pulse Ox 98.2 F 86 21 H 137/75 H 94 10/21/18 00:00 10/21/18 07:00 10/21/18 06:35 10/21/18 06:00 10/21/18 08:15 Oxygen Flow Rate (L/min) 2 Oxygen Delivery Method Nasal Cannula Weight: 262 lb 9.129 oz Body Mass Index (BMI) 45.1 Intake and Output for Last 24 Hours 10/19/18 10/20/18 10/21/18 23:59 23:59 23:59 Intake Total 247 / 247 495 / 495 Output Total 500 / 500 Balance 247 / 247 -5 / -5 General: Alert, Oriented x3, Cooperative HEENT: Atraumatic, PERRLA, EOMI, Normocephalic Neck: Supple, No JVD, Negative Carotid Bruits, Thyroid Normal Size and Texture Lungs: Diminished - Air entry diffusely diminished. Expiratory phase prolonged, Rales - Fine inspiratory rales present throughout, more on lower lobes bilaterally., Short of Breath, Tachypneic Cardiovascular: Regular rate, Regular Rhythm, Normal S1, Normal S2, No murmurs Abdomen: Bowel Sounds Present, Soft, Non Tender, Non-Distended Extremities: Capillary Refill Less than 3 Seconds, Edema Skin: No rashes, No breakdown Musculoskeletal: No Tenderness to Palpation of Joints or Extremities Neurological: Cranial nerves II-XII grossly intact Psych/Mental Status: Normal Affect, Appropriate Microbiology Past 72 Hours 10/20/18 18:15 Mucosa - Nasopharyngeal Respiratory Panel (PCR) - Final Laboratory Results 10/20/18 15:24: WBC Cancelled, Corrected WBC Cancelled, RBC Cancelled, Hgb Cancelled, Hct Cancelled, MCV Cancelled, MCH Cancelled, MCHC Cancelled, RDW Cancelled, RDW Differential Cancelled, Plt Count Cancelled, MPV Cancelled, Immature Gran % (Auto) Cancelled, Neut % (Auto) Cancelled, Lymph % (Auto) Cancelled, Morris % (Auto) Cancelled, Eos % (Auto) Cancelled, Baso % (Auto) Cancelled, Immature Gran # (Auto) Cancelled, Absolute Neuts (auto) Cancelled, Absolute Lymphs (auto) Cancelled, Absolute Monos (auto) Cancelled, Total Counted Cancelled, Neutrophils % (Manual) Cancelled, Band Neutrophils % Cancelled, Lymphocytes % (Manual) Cancelled, Monocytes % (Manual) Cancelled, Eosinophils % (Manual) Cancelled, Basophils % (Manual) Cancelled, Metamyelocytes % Cancelled, Myelocytes % Cancelled, Promyelocytes % Cancelled, Blast Cells % Cancelled, Plasma Cell % (Manual) Cancelled, Other Cells % Cancelled, Lymphocytes # Cancelled, Nucleated RBCs/100 WBC Cancelled, Differential Comment Cancelled, Diff Path Review Cancelled, Hypersegmented Neuts Cancelled, Atypical Lymphocytes Cancelled, Reactive Lymphocytes Cancelled, Smudge Cells Cancelled, Eosinophilia # Cancelled, Basophilia # Cancelled, Toxic Granulation Cancelled, Dohle Bodies Cancelled, Good Rods Cancelled, Platelet Estimate Cancelled, Plt Morphology Comment Cancelled, RBC Morphology Cancelled, Polychromasia Cancelled, Hypochromasia Cancelled, Poikilocytosis Cancelled, Basophilic Stippling Cancelled, Anisocytosis Cancelled, Microcytosis Cancelled, Macrocytosis Cancelled, Spherocytes Cancelled, Sickle Cells Cancelled, Target Cells Cancelled, Tear Drop Cells Cancelled, Ovalocytes Cancelled, Stomatocytes Cance lled, [place] Bodies Cancelled, [place] Cells Cancelled, Bite Cells Cancelled, Acanthocytes (Spur) Cancelled, Rouleaux Cancelled, Schistocytes Cancelled 10/20/18 15:24: Sodium 139, Potassium 4.7, Chloride 106, Carbon Dioxide 25.0, Anion Gap 8, BUN 36 H, Creatinine 1.76 H, Estim Creat Clear Calc 26.00, Est GFR (MDRD) Af Amer 36 L, Est GFR (MDRD) Non-Af 30 L, BUN/Creatinine Ratio 20.5 H, Glucose 89, Calcium 8.4 L, Troponin I < 0.015 10/20/18 15:24: B-Natriuretic Peptide Cancelled 10/20/18 15:38: Specimen Type ART, Sample Site L Radial, pH 7.27 L, Bicarbonate Actual 28.5 H, POC Total CO2 30, Base Excess 2, O2 Saturation 98, ABG pCO2 62.2 H, ABG pO2 133 H, Noah Test NA, O2 Delivery Device NRB Mask, Liter Flow 15.0, Blood Gas Notified Whom ED , Blood Gas Notified Time 1530 10/20/18 17:00: Lactic Acid 0.6 10/20/18 17:05: WBC 10.0, RBC 3.67 L, Hgb 10.4 L, Hct 33.9 L, MCV 92.4, MCH 28.3, MCHC 30.7 L, RDW 14.5, RDW Differential 47.5 H, Plt Count 83 L, MPV 10.1, Immature Gran % (Auto) 0.500, Neut % (Auto) 69.9, Lymph % (Auto) 16.6 L, Morris % (Auto) 9.4, Eos % (Auto) 3.3, Baso % (Auto) 0.3, Absolute Neuts (auto) 7.0, Absolute Lymphs (auto) 1.65, Total Counted Not Reportable 10/20/18 17:05: B-Natriuretic Peptide 78.3 10/21/18 04:05: WBC 7.2, RBC 3.61 L, Hgb 10.3 L, Hct 33.2 L, MCV 92.0, MCH 28.5, MCHC 31.0 L, RDW 14.1, RDW Differential 46.1 H, Plt Count 217, MPV 9.3 10/21/18 04:05: Sodium 141, Potassium 4.5, Chloride 106, Carbon Dioxide 27.0, Anion Gap 8, BUN 32 H, Creatinine 1.63 H, Estim Creat Clear Calc 26.94, Est GFR (MDRD) Af Amer 40 L, Est GFR (MDRD) Non-Af 33 L, BUN/Creatinine Ratio 19.6, Glucose 135 H, Calcium 8.4 L, Troponin I < 0.015 Current Medications Albuterol Sulfate (Ventolin Aerosols) 2.5 mg INHALATION Q2H PRN PRN PRN Reason: DYSPNEA Albuterol/Ipratropium (Duoneb) 3 ml INHALATION Q6H.RT [facility] Last Admin: 10/21/18 06:40 Dose: 3 ml Chlorhexidine Gluconate () 1 each TOPICAL DAILY [facility] Last Admin: 10/21/18 05:05 Dose: 1 each Heparin Sodium (Porcine) (Heparin Na) 5,000 unit SC Q8 [facility] Last Admin: 10/21/18 05:05 Dose: 5,000 unit Sodium Chloride () 1,000 mls @ 75 mls/hr IV .[id number] [facility] Last Admin: 10/21/18 02:45 Dose: 75 mls/hr Sodium Chloride () 250 mls @ 15 mls/hr IV .[id number] PRN PRN Reason: SALINE FLUSH Methylprednisolone (Solu-Medrol) 40 mg IV Q8 [facility] Last Admin: 10/21/18 05:05 Dose: 40 mg Sodium Chloride () 5 - 15 ml IV UD PRN PRN Reason: SALINE FLUSH Last Admin: 10/21/18 05:05 Dose: 10 ml Medical Necessity - Tobacco Use Smoking Status: Never smoker Tobacco Use: Non-smoker Assessment/Plan All Active Problems (Last Updated 10/20/18 @ 21:32 by Osvaldo Franco DO) Shortness of breath (Acute) Chest pain (Resolved) Parotitis (Resolved) Atypical chest pain (Acute) NSTEMI (non-ST elevated myocardial infarction) (Resolved) Patient has history of progressive idiopathic pulmonary fibrosis. Previous multiple PFTs shows progression of IPF with decreasing DLCO. Patient on BiPAP. Feels shortness of breath is better. Heart rate is regular sinus rhythm. Respiratory rate 20-26/min. On 25% FiO2 BiPAP. BiPAP changed to nasal cannula 2 L/min pulse ox 94%. This 73-year-old female with history of progressive idiopathic pulmonary fibrosis. Previous multiple PFTs shows progression of IPF with decreasing DLCO. The patient was admitted through ER for severe shortness of breath and hypoxia consistent with acute on chronic combined respiratory failure. ABG showed 7.27/62/133 on 15 L nonrebreather mask. Patient was put on BiPAP and admitted in ICU. #1 acute on chronic hypoxemic and hypercapnic respiratory failure: Patient on intermittent BiPAP. shortness of breath is better. On 25% FiO2 BiPAP. BiPAP changed to nasal cannula 2 L/min pulse ox 94%. On further discussion with dishwasher Dr. De Los Santos who knows the patient well from pulmonary clinic visits, she was in hospice care but unclear what happened afterwards and landed in the ER and got admitted. Further discussion with family for advanced directive, goal of life and possible hospice care. Dr. De Los Santos input appreciated. #2 progressive idiopathic pulmonary fibrosis: On IV Solu-Medrol. As her disease is progressive and seeing overall general health no definitive treatment, family discussion is the appropriate path to go. Rest as mentioned above #3 Acute kidney injury on stage III chronic kidney disease 3: Her baseline creatinine is about 1.4 in November 2017 although is slowly worsening from December 2016 when it was 1.25. Admitting creatinine 1.76, improved to 1.63. BUN 32. Acute kidney injury probably secondary to diuretics and lisinopril. They are held. CKD seems due to intrinsic kidney disease/ATN #4 atypical chest pain-etiology unclear, most likely pleuritic in nature: Serial troponins are negative. #5 obstructive sleep apnea: Patient has BiPAP at home #6 hypertension #7 coronary artery disease #8 morbid obesity #9 spinal stenosis #10 hyperlipidemia/ DVT prophylaxis: Moderate risk for venous thromboembolic disease. first CBC reported platelet count 83,000 and then today 217,000. Probably first 1 had platelet clumps. on the heparin 5000 units subcutaneous every 8 hourly. Watch CBC until she is made hospice. Code Visit Inpatient E&M: [id number] [facility] L3
--- NOTE | 2018-10-21 08:50 | NURSING ---
Attempted to call pt's lorraine Keating twice between [phone] and [phone]. Pt requesting Zuri to come in and MD wanting to discuss plan of care. Went straight to voicemail every time. left message both times.
--- NOTE | 2018-10-21 10:00 | CASEMGMT ---
Addendum entered by Marcella Kitchen 10/21/18 10:17: SW faxed clinical information to [facility]. MARCELLUS Vanegas, LINER INSTALLER Original Note: As per Dr. De Los Santos, pt had been referred from their office to hospice. Physician inquired w/pt about hospice, pt told her that she could not be on hospice because she could not walk. SW called hospice for clarification. As per Sveta, pt called hospice and said she was having a heart attack and had to go to the hospital, so hospice services were revoked. As per hospice, leonor Keating is the pt's main contact, they have son Bernardo listed as well. Pt has no POA papers on chart here or with hospice. SW spoke w/pt in room in regard to plan at discharge. Pt is living home alone, and hospice was coming in 3 times per week. Pt states that hospice was going to be with her all the time when she goes home, this was her understanding. Pt states that she plans to go home today but that we need to reach her niece Zuri as she has pt's keys. Pt states Zuri is her POA, but is okay for SW to also call pt's son. Pt agreeable to speak w/hospice here in the hospital today. SW called niece, message left. SW called son, message left. SW will fax updates and new order to hospice, SW spoke w/Sveta, they are not going to come see pt until we have a better understanding of the plan, if pt can go home or needs to go to a [place] [facility] [place] on hospice--as hospice does not provide 24 hour care at home. SW will wait for family to return calls. MARCELLUS Vanegas, LINER INSTALLER
--- NOTE | 2018-10-21 11:41 | NURSING ---
1141-Called hospice to get patient's home med list. Hospice to be faxing med list.
--- NOTE | 2018-10-21 13:02 | CASEMGMT ---
Addendum entered by Marcella Kitchen 10/21/18 13:16: Med list faxed from hospice, SW gave to RN. SW received a call from Annalise Shady with [employer]([phone]). She states pt has aide services through [facility] three days per week, 2 hours Friday and Friday, and 3 hours on Friday. She states pt gets 14 meals/week and has a life alert button. Pt is on oxygen at home as well. SW explained waiting to hear back from family in regard to this pt, to help determine discharge plan. SW will continue to follow, will keep Annalise informed of plan as well. Annalise is going to call [facility] to see if they have any availability to increase pt's services at home and she will let this SW know. MARCELLUS Vanegas, CRYPTOLOGIC SUPERVISOR Original Note: RN requested med list from hospice, they wanted a release signed. Pt signed release, SW faxed to hospice. No med list has been received however. SW called hospice and requested again the med list be faxed now that the release has been signed and faxed. SW tried pt's niece again, went straight to voicemail. SW did not leave another message as RN has left two already and this SW left one message earlier. MARCELLUS Vanegas, CRYPTOLOGIC SUPERVISOR
--- NOTE | 2018-10-21 13:07 | CASEMGMT ---
No POA/LW forms on chart. SW asked hospice, they also do not have any forms. SW can ask niece as time allows should she return this SW's call. MARCELLUS Vanegas, SPINNING BATH PATROLLER
--- NOTE | 2018-10-21 15:18 | CASEMGMT ---
Addendum entered by Marcella Kitchen 10/21/18 15:28: SW called leonor Keating one more time, message left w/ICU's number directly, and the number to call SW covering ICU tomorrow. MARCELLUS Vanegas, CONSTRUCTION FIELD ENGINEER Original Note: Sveta from [facility] called this SW to check in on what is going on w/pt. SW explained that family has not yet returned calls to this SW, and at this point it seems it would be better for pt to speak w/hospice w/family present--given pt's current presentation. Pt slightly confused at times and SW explained it would be beneficial for pt to meet w/hospice w/family present when reviewing all options. Pt did work w/PT and OT and she was unsteady, walked 15-20 feet, and needed minimum assist of one. SW explained that Sveta can check in w/SW tomorrow, or SW will get back in touch with [facility]. SW will continue to follow. MARCELLUS Vanegas, CONSTRUCTION FIELD ENGINEER
--- NOTE | 2018-10-21 16:26 | CASEMGMT ---
Social Work ICU Received call from Manuela HIGGINBOTHAM in the ICU reporting that patient is back to baseline, ready for hospice consult but that hospice wants to confirm that family is okay with reinstating hospice before hospice can initiate care. Per RN the patient's niece is going to be to the hospital in an hour to visit, and wondering if it can be coordinated for hospice to meet with patient and family this evening. RN provided this chief writer leonor Keating's work number. Spoke with leonor Keating who confirms will be to hospital after work, around 1700. Reviewed with Zuri the reports this chief writer received about patient being ready for hospice again, and need for family input. Zuri agreeable to meet with hospice, reports patient has just been in hospice services for a few weeks and that patient initiated this herself. Talked with Zuri about that if patient reinstates hospice, do need to think about aftercare plans as far as home with home health aide versus more care such as at a correction. Touched on hospice versus palliative care, with hospice not seeking curative treatment with more focus on comfort. Zuri asked about medicare coverage at the correction. Educated that Medicare pays for skilled care, which would fall under curative, that if patient returns to hospice care then could look at patient going to correction under medicaid benefits for room and board and then hospice to follow. Suggested that Zuri talk with Hospice and patient further and then make decision. Zuri states okay to give numbers to hospice workers. Spoke with Parker, nurses at hospice. Referral given and explained Zuri's availability at 1700 today. Hospice does not have a liaison available tonight to come out. Hospice called Zuri and then called this chief writer back. Zuri unable to alter work schedule tomorrow, so the earliest that both Zuri and hospice's schedules work is tomorrow at 1700. Let Sveta know this chief writer broached with Zuri patient going home with home health aide versus correction care and hospice, that patient appears to have Medicaid and on community based waiver services for home health aides. Called Zuri back at work, no answer. Called cell phone and went to voicemail. As Zuri indicated okay to call on cell phone this chief writer left message asking Zuri to bring in POA papers if has them. Asked Zuri to maybe talk with patient about aftercare options talked about, and then social work can reconvene tomorrow about aftercare plans. Updated Manuela HIGGINBOTHAM. FAMILY CONTACT INFORMATION: Zuri Ordaz Cell - [phone] Work - [phone] PLAN: Hospice to meet with patient and niece tomorrow, 10-22-18 at 1700 (due to scheduling on both parts, unable to meet before). Anticipate reinstating hospice services but will need to determine home with home health aides, possibly increase of aide hours, versus need for more care such as in a correction. Social work to follow. -MARCELLUS [place], ELECTRONICS INSTRUCTOR
[2018-10-21] MEDS: Senna Tablet 1 TABLET PO (21:26)
[2018-10-21] MEDS: Gabapentin 400 MG Capsule PO (21:26)
[2018-10-21] MEDS: traZODone 50 MG Tablet PO (21:27)
[2018-10-21] MEDS: DULoxetine Hcl 60 MG Capsule PO (21:28)
[2018-10-21] MEDS: LORazepam 0.5 MG Tablet PO (23:58)
[2018-10-22] VITALS (8 sets, daily range): BP systolic 137–155; BP diastolic 70–93; PULSE 80–95; RESP 18–20; TEMP 36.2–36.9; O2SAT 92–96
[2018-10-22] MEDS: Ipratropium/Albuterol Sulfate 3 ML AMPUL.NEB INHALATION ×2 (00:47→06:33)
[2018-10-22 06:10] LABS: Absolute Lymphocyte Count 0.83 X10^3/ul (0.83-4.51); Absolute Neutrophil Count 8.2 X10^3/uL (2.0-7.7); Basophil# 0.01 X10^3/uL; Basophil% 0.1 % (0-1); Hematocrit 30.5 % (37-47); Hemoglobin 9.8 g/dl (12.0-15.0); Lymphocyte # 0.83 X10^3/ul (4.0); Lymphocyte % 8.5 % (19-41); Mean Corp Hgb Conc 32.1 g/gl (32-36); Mean Corpuscular Hgb 28.6 pg (27.0-32.0); Mean Corpuscular Volume 88.9 fL (81-99); Mean Platelet Vol. 9.1 fl (6.2-12.0); Monocyte# 0.68 X10^3/uL; Neutrophil # 8.17 X10^3/uL (2.7-7.7); Neutrophil % 83.5 % (47-70); Platelet Count 211 K/mm3 (150-450); RBC Distribution Width CV 14.1 % (11.6-14.6); RBC Distribution Width SD 44.2 fl (35.1-43.9); Red Blood Count 3.43 M/mm3 (4.2-5.4); White Blood Count 9.8 K/mm3 (4.4-11.0)
[2018-10-22 06:18] LABS: Anion Gap 8 (5-15); BUN 27 mg/dL (7-18); BUN/Creat Ratio 20.5 RATIO (10-20); Calcium,Total 8.6 mg/dL (8.5-10.1); Chloride 109 mmol/L (98-107); Creatinine, Serum 1.32 mg/dL (0.55-1.02); EST Glomerular Filtration Rate 42 mL/min (>60); Est Glom Filt Rate - Afr Amer 51 mL/min (>60); Estimated Creatinine Clearance 33.27 ml/min; Glucose 119 mg/dL (74-106); Potassium 3.9 mmol/L (3.5-5.1); Sodium Level 143 mmol/L (136-145)
[2018-10-22 06:22] LABS: POSITIVE COUNT NO; POSITIVE DIFFERENTIAL NO; POSITIVE MORPHOLOGY NO
[2018-10-22] MEDS: 0.9% Normal Saline 1,000 ML 75 ML IV (06:39)
[2018-10-22] MEDS: Heparin Injection (Vial) 5,000 UNIT/ML VIAL 5000 UNIT SC ×3 (06:39→21:19)
[2018-10-22] MEDS: Senna Tablet 1 TABLET PO ×3 (06:39→21:19)
[2018-10-22] MEDS: 0.9% NaCl Peripheral Flush Adult/Peds IV ×2 (06:40→07:59)
[2018-10-22] MEDS: Levothyroxine 25 MCG TABLET PO (06:40)
--- NOTE | 2018-10-22 06:58 | PCM.PROGNOTE ---
Patient Problems: Active and Suspected Problems (Last Updated 10/20/18 @ 21:32 by Osvaldo Franco DO) Shortness of breath (Acute) Subjective: The patient was seen and examined at the bedside this morning. Events from the last 24 hours have been reviewed. The patient is currently afebrile, hemodynamically stable and maintaining appropriate oxygen saturations on 2 L/min via nasal cannula. The patient has been tolerant of nocturnal BiPAP. There are tentative plans for a hospice meeting with the patient and her family this evening. Objective: The patient's most recent lab work, culture data and imaging studies have all been personally reviewed. Blood cultures are pending. Respiratory viral panel was negative. - Physical Exam General: Alert, Cooperative, No apparent distress, - - Morbidly obese HEENT: Atraumatic, PERRLA, Normocephalic Oral: No Gingival or Mucosal Lesions/ Ulcerations Neck: Supple, No Nodes, Trachea Midline Lungs: No rhonchi, No wheeze, Diminished, Rales Cardiovascular: Regular rate, Regular Rhythm, Normal S1, Normal S2, No murmurs Abdomen: Bowel Sounds Present, Soft, Non Tender, Obese Extremities: No clubbing, No cyanosis, Edema Skin: No breakdown Musculoskeletal: No Tenderness to Palpation of Joints or Extremities Lymphatic: No Cervical, Supraclavicular, or Inguinal Adenopathy Neurological: Neuro grossly intact Psych/Mental Status: Normal Affect, Appropriate Vital Signs Temp Pulse Resp BP Pulse Ox 36.2 C L 80 18 155/70 H 93 10/22/18 01:59 10/22/18 06:33 10/22/18 06:33 10/22/18 01:59 10/22/18 06:33 Oxygen Flow Rate (L/min) 1 Oxygen Delivery Method CPAP Weight: 262 lb Body Mass Index (BMI) 45.1 Intake and Output for Last 24 Hours 10/20/18 10/21/18 10/22/18 23:59 23:59 23:59 Intake Total 247 / 247 1091 / 1091 1213 / 1213 Output Total 1150 / 1150 Balance 247 / 247 -59 / -59 1213 / 1213 Microbiology Past 72 Hours 10/20/18 18:15 Respiratory Panel (PCR) - Final Mucosa - Nasopharyngeal Laboratory Tests Past 24 Hrs 10/22/18 10/22/18 05:58 05:58 WBC 9.8 RBC 3.43 L Hgb 9.8 L Hct 30.5 L MCV 88.9 MCH 28.6 MCHC 32.1 RDW 14.1 RDW Differential 44.2 H Plt Count 211 MPV 9.1 Immature Gran % (Auto) 0.900 Neut % (Auto) 83.5 H Lymph % (Auto) 8.5 L Elliott % (Auto) 7.0 Eos % (Auto) 0.0 Baso % (Auto) 0.1 Absolute Neuts (auto) 8.2 H Absolute Lymphs (auto) 0.83 Total Counted Not Reportable Sodium 143 Potassium 3.9 Chloride 109 H Carbon Dioxide 26.0 Anion Gap 8 BUN 27 H Creatinine 1.32 H Estim Creat Clear Calc 33.27 Est GFR (MDRD) Af Amer 51 L Est GFR (MDRD) Non-Af 42 L BUN/Creatinine Ratio 20.5 H Glucose 119 H Calcium 8.6 Clinical Impression(s) from Imaging Studies Chest X-Ray 10/20/18 15:09 IMPRESSION: Stable examination. Electronically Signed: Bernabe Norwood MD at 15:45 EST Tel [phone], Service support , Chest X-Ray 10/20/18 17:05 IMPRESSION: Right IJ line terminates in the SVC at the right atrial junction. No acute process. Electronically Signed: Amaris Barr MD at 17:57 EST Tel , Service support , Chest X-Ray 10/21/18 05:55 IMPRESSION: No acute cardiopulmonary disease. Electronically Signed: Raman Schwab MD at 5:44 EST , Service support , Medical Necessity - Tobacco Use Smoking Status: Never smoker Tobacco Use: Non-smoker Assessment/Plan All Active Problems (Last Updated 10/20/18 @ 21:32 by Osvaldo Franco DO) Shortness of breath (Acute) Chest pain (Resolved) Parotitis (Resolved) Atypical chest pain (Acute) NSTEMI (non-ST elevated myocardial infarction) (Resolved) RECOMMENDATIONS: 1. Discontinue bronchodilators and steroids. 2. Continue supplemental oxygen at 2 L/min per baseline. 3. Plans for follow-up hospice care meeting this evening with family members. IMPRESSIONS: 1. Acute on chronic hypoxemic respiratory failure The patient has a history of restrictive lung mechanics due to presumptive idiopathic pulmonary fibrosis. She has been followed longitudinally in the pulmonary medicine clinic. At her last office visit, the patient was referred to hospice care. However, the patient recently revoked her hospice care services. She has a baseline 2 L/min supplemental oxygen requirement and was scheduled to undergo repeat pulmonary function testing and CT chest in the upcoming months. The patient was able to be weaned quickly from noninvasive positive pressure ventilation and is currently maintaining appropriate oxygen saturations on her baseline 2 L/min requirement. She has no readily identifiable pulmonary infectious process. Given that the patient has restrictive lung mechanics and no evidence of COPD, aerosol treatments can be discontinued. IV Solu-Medrol can also be discontinued from my perspective. 2. Radiographic findings concerning for idiopathic pulmonary fibrosis The patient has been followed longitudinally in the pulmonary medicine clinic. This is a progressive disease and the patient's symptoms will likely continue to worsen with time, as well as her supplemental oxygen requirement. Recommend repeating a walk test prior to consideration for discharge from the hospital. 3. Obstructive sleep apnea The patient has been compliant with use of nocturnal Pap therapy. She is currently prescribed a BiPAP pressure support setting of 18/12 centimeters of water with humidification. Recommend continuation of nocturnal BiPAP therapy while admitted to the hospital. 4. Morbid obesity/depression/anxiety Complicates care, management, recovery and prognosis. Okay to continue home medications from my perspective. This note was generated with [employer] dictation software. It may contain incorrect words, spelling, and punctuation that were not noted in checking the note before signing. Code Visit Inpatient E&M: 65956 [facility] L2
--- NOTE | 2018-10-22 07:01 | PN_ITS ---
Patient Problems: Active and Suspected Problems (Last Updated 10/20/18 @ 21:32 by Osvaldo Franco DO) Shortness of breath (Acute) Subjective: The patient was seen and examined at the bedside this morning. Events from the last 24 hours have been reviewed. The patient is currently afebrile, hemodynamically stable and maintaining appropriate oxygen saturations on 2 L/min via nasal cannula. The patient has been tolerant of nocturnal BiPAP. There are tentative plans for a hospice meeting with the patient and her family this ev ening. Objective: The patient's most recent lab work, culture data and imaging studies have all been personally reviewed. Blood cultures are pending. Respiratory viral panel was negative. - Physical Exam General: Alert, Cooperative, No apparent distress, - - Morbidly obese HEENT: Atraumatic, PERRLA, Normocephalic Oral: No Gingival or Mucosal Lesions/ Ulcerations Neck: Supple, No Nodes, Trachea Midline Lungs: No rhonchi, No wheeze, Diminished, Rales Cardiovascular: Regular rate, Regular Rhythm, Normal S1, Normal S2, No murmurs Abdomen: Bowel Sounds Present, Soft, Non Tender, Obese Extremities: No clubbing, No cyanosis, Edema Skin: No breakdown Musculoskeletal: No Tenderness to Palpation of Joints or Extremities Lymphatic: No Cervical, Supraclavicular, or Inguinal Adenopathy Neurological: Neuro grossly intact Psych/Mental Status: Normal Affect, Appropriate Vital Signs Temp Pulse Resp BP Pulse Ox 36.2 C L 80 18 155/70 H 93 10/22/18 01:59 10/22/18 06:33 10/22/18 06:33 10/22/18 01:59 10/22/18 06:33 Oxygen Flow Rate (L/min) 1 Oxygen Delivery Method CPAP Weight: 262 lb Body Mass Index (BMI) 45.1 Intake and Output for Last 24 Hours 10/20/18 10/21/18 10/22/18 23:59 23:59 23:59 Intake Total 247 / 247 1091 / 1091 1213 / 1213 Output Total 1150 / 1150 Balance 247 / 247 -59 / -59 1213 / 1213 Microbiology Past 72 Hours 10/20/18 18:15 Respiratory Panel (PCR) - Final Mucosa - Nasopharyngeal Laboratory Tests Past 24 Hrs 10/22/18 10/22/18 05:58 05:58 WBC 9.8 RBC 3.43 L Hgb 9.8 L Hct 30.5 L MCV 88.9 MCH 28.6 MCHC 32.1 RDW 14.1 RDW Differential 44.2 H Plt Count 211 MPV 9.1 Immature Gran % (Auto) 0.900 Neut % (Auto) 83.5 H Lymph % (Auto) 8.5 L [place] % (Auto) 7.0 Eos % (Auto) 0.0 Baso % (Auto) 0.1 Absolute Neuts (auto) 8.2 H Absolute Lymphs (auto) 0.83 Total Counted Not Reportable Sodium 143 Potassium 3.9 Chloride 109 H Carbon Dioxide 26.0 Anion Gap 8 BUN 27 H Creatinine 1.32 H Estim Creat Clear Calc 33.27 Est GFR (MDRD) Af Amer 51 L Est GFR (MDRD) Non-Af 42 L BUN/Creatinine Ratio 20.5 H Glucose 119 H Calcium 8.6 Clinical Impression(s) from Imaging Studies Chest X-Ray 10/20/18 15:09 IMPRESSION: Stable examination. Electronically Signed: Bernabe Norwood MD at 15:45 EST Tel [phone], Service support , Chest X-Ray 10/20/18 17:05 IMPRESSION: Right IJ line terminates in the SVC at the right atrial junction. No acute process. Electronically Signed: Amaris Barr MD at 17:57 EST Tel , Service support , Chest X-Ray 10/21/18 05:55 IMPRESSION: No acute cardiopulmonary disease. Electronically Signed: Raman Schwab MD at 5:44 EST , Service support , Medical Necessity - Tobacco Use Smoking Status: Never smoker Tobacco Use: Non-smoker Assessment/Plan All Active Problems (Last Updated 10/20/18 @ 21:32 by Osvaldo Franco DO) Shortness of breath (Acute) Chest pain (Resolved) Parotitis (Resolved) Atypical chest pain (Acute) NSTEMI (non-ST elevated myocardial infarction) (Resolved) RECOMMENDATIONS: 1. Discontinue bronchodilators and steroids. 2. Continue supplemental oxygen at 2 L/min per baseline. 3. Plans for follow-up hospice care meeting this evening with family members. IMPRESSIONS: 1. Acute on chronic hypoxemic respiratory failure The patient has a history of restrictive lung mechanics due to presumptive idiopathic pulmonary fibrosis. She has been followed longitudinally in the pulmonary medicine clinic. At her last office visit, the patient was referred to hospice care. However, the patient recently revoked her hospice care services. She has a baseline 2 L/min supplemental oxygen requirement and was scheduled to undergo repeat pulmonary function testing and CT chest in the upcoming months. The patient was able to be weaned quickly from noninvasive positive pressure ventilation and is currently maintaining appropriate oxygen saturations on her baseline 2 L/min requirement. She has no readily identifiable pulmonary infectious process. Given that the patient has restrictive lung mechanics and no evidence of COPD, aerosol treatments can be discontinued. IV Solu-Medrol can also be discontinued from my perspective. 2. Radiographic findings concerning for idiopathic pulmonary fibrosis The patient has been followed longitudinally in the pulmonary medicine clinic. This is a progressive disease and the patient's symptoms will likely continue to worsen with time, as well as her supplemental oxygen requirement. Recommend repeating a walk test prior to consideration for discharge from the hospital. 3. Obstructive sleep apnea The patient has been compliant with use of nocturnal Pap therapy. She is currently prescribed a BiPAP pressure support setting of 18/12 centimeters of water with humidification. Recommend continuation of nocturnal BiPAP therapy while admitted to the hospital. 4. Morbid obesity/depression/anxiety Complicates care, management, recovery and prognosis. Okay to continue home medications from my perspective. This note was generated with [employer] dictation software. It may contain incorrect words, spelling, and punctuation that were not noted in checking the note before signing. Code Visit Inpatient E&M: 49446 Subs Hosp L2
[2018-10-22] MEDS: Gabapentin 300 MG Capsule PO (07:58)
[2018-10-22] MEDS: LORazepam 0.5 MG Tablet PO ×3 (07:59→21:25)
[2018-10-22] MEDS: Linacolotide 145 MCG CAPSULE PO (10:02)
[2018-10-22] MEDS: Clopidogrel Bisulfate 75 MG Tablet PO (10:02)
[2018-10-22] MEDS: Metoprolol(XL)Succ 25 MG Tablet PO (10:02)
[2018-10-22] MEDS: DULoxetine Hcl 60 MG Capsule PO ×2 (10:02→21:19)
--- NOTE | 2018-10-22 15:04 | PCM.PN.HOSP ---
Patient Problems: Active and Suspected Problems (Last Updated 10/20/18 @ 21:32 by Osvaldo Franco DO) Shortness of breath (Acute) Subjective: Patient respiratory status is much better than yesterday. On 2 L oxygen through nasal cannula. Patient will need walking pulse oximetry. Family discussion at about 5 PM for goal of life care/advance directive Vitals/I&O's: Vital Signs Temp Pulse Resp BP Pulse Ox 98.2 F 95 18 137/76 H 95 10/22/18 07:50 10/22/18 10:02 10/22/18 07:50 10/22/18 07:50 10/22/18 07:50 Oxygen Flow Rate (L/min) 2 Oxygen Delivery Method Nasal Cannula Weight: 262 lb Body Mass Index (BMI) 45.1 Intake and Output for Last 24 Hours 10/20/18 10/21/18 10/22/18 23:59 23:59 23:59 Intake Total 247 / 247 1091 / 1091 1563 / 1563 Output Total 1150 / 1150 Balance 247 / 247 -59 / -59 1563 / 1563 General: Alert, Oriented x3, Cooperative HEENT: Atraumatic, PERRLA, EOMI, Normocephalic Neck: Supple, No JVD, Negative Carotid Bruits Lungs: Diminished - Air entry diffusely diminished anteriorly, laterally and posteriorly., Rales - Inspiratory worse rales present, - - Expiratory phase prolonged Cardiovascular: Regular rate, Regular Rhythm, Normal S1, Normal S2, No murmurs Abdomen: Bowel Sounds Present, Soft, Non Tender, Non-Distended, - - Sandy catheter present Extremities: Capillary Refill Less than 3 Seconds, Edema Skin: No rashes, No breakdown Musculoskeletal: No Tenderness to Palpation of Joints or Extremities, Arthritic Changes, Muscle Wasting Neurological: Cranial nerves II-XII grossly intact, Deep Tendon Reflexes 2+/4 and Symmetrical, Neuro grossly intact Psych/Mental Status: Normal Affect, Appropriate Microbiology Past 72 Hours 10/20/18 18:15 Mucosa - Nasopharyngeal Respiratory Panel (PCR) - Final Laboratory Results 10/22/18 05:58: WBC 9.8, RBC 3.43 L, Hgb 9.8 L, Hct 30.5 L, MCV 88.9, MCH 28.6, MCHC 32.1, RDW 14.1, RDW Differential 44.2 H, Plt Count 211, MPV 9.1, Immature Gran % (Auto) 0.900, Neut % (Auto) 83.5 H, Lymph % (Auto) 8.5 L, [place] % (Auto) 7.0, Eos % (Auto) 0.0, Baso % (Auto) 0.1, Absolute Neuts (auto) 8.2 H, Absolute Lymphs (auto) 0.83, Total Counted Not Reportable 10/22/18 05:58: Sodium 143, Potassium 3.9, Chloride 109 H, Carbon Dioxide 26.0, Anion Gap 8, BUN 27 H, Creatinine 1.32 H, Estim Creat Clear Calc 33.27, Est GFR (MDRD) Af Amer 51 L, Est GFR (MDRD) Non-Af 42 L, BUN/Creatinine Ratio 20.5 H, Glucose 119 H, Calcium 8.6 Current Medications Chlorhexidine Gluconate () 1 each TOPICAL DAILY [facility] Last Admin: 10/22/18 10:00 Dose: Not Given Clopidogrel Bisulfate (Plavix) 75 mg PO DAILY [facility] Last Admin: 10/22/18 10:02 Dose: 75 mg Duloxetine HCl (Cymbalta) 60 mg PO BID [facility] Last Admin: 10/22/18 10:02 Dose: 60 mg Gabapentin (Neurontin) 300 mg PO DAILYCM [facility] Last Admin: 10/22/18 07:58 Dose: 300 mg Gabapentin (Neurontin) 400 mg PO QHS [facility] Last Admin: 10/21/18 21:26 Dose: 400 mg Heparin Sodium (Porcine) (Heparin Na) 5,000 unit SC Q8 [facility] Last Admin: 10/22/18 14:44 Dose: 5,000 unit Sodium Chloride () 250 mls @ 15 mls/hr IV .[id number] PRN PRN Reason: SALINE FLUSH Levothyroxine Sodium (Synthroid) 25 mcg PO DAILY@0600 [facility] Last Admin: 10/22/18 06:40 Dose: 25 mcg Linaclotide (Linzess) 145 mcg PO DAILY [facility] Last Admin: 10/22/18 10:02 Dose: 145 mcg Lorazepam (Ativan) 0.5 mg PO Q4H PRN PRN PRN Reason: ANXIETY Last Admin: 10/22/18 07:59 Dose: 0.5 mg Meclizine HCl (Antivert) 25 mg PO TID PRN PRN PRN Reason: Vertigo Methadone HCl () 5 mg PO Q12 [facility] Last Admin: 10/22/18 10:02 Dose: 5 mg Metoprolol Succinate (Toprol Xl (Beta Vik)) 25 mg PO DAILY [facility] Last Admin: 10/22/18 10:02 Dose: 25 mg Senna (Senokot) 1 tablet PO TID [facility] Last Admin: 10/22/18 14:44 Dose: 1 tablet Sodium Chloride () 5 - 15 ml IV UD PRN PRN Reason: SALINE FLUSH Last Admin: 10/22/18 07:59 Dose: 10 ml Trazodone HCl (Desyrel) 50 mg PO QHS PRN PRN PRN Reason: SLEEP Last Admin: 10/21/18 21:27 Dose: 50 mg Medical Necessity - Tobacco Use Smoking Status: Never smoker Tobacco Use: Non-smoker Assessment/Plan All Active Problems (Last Updated 10/20/18 @ 21:32 by Osvaldo Franco DO) Shortness of breath (Acute) Chest pain (Resolved) Parotitis (Resolved) Atypical chest pain (Acute) NSTEMI (non-ST elevated myocardial infarction) (Resolved) Patient has history of progressive idiopathic pulmonary fibrosis. Previous multiple PFTs shows progression of IPF with decreasing DLCO. Patient on BiPAP. Feels shortness of breath is better. Heart rate is regular sinus rhythm. Respiratory rate 20-26/min. On 25% FiO2 BiPAP. BiPAP changed to nasal cannula 2 L/min pulse ox 94%. This 73-year-old female with history of progressive idiopathic pulmonary fibrosis. Previous multiple PFTs shows progression of IPF with decreasing DLCO. The patient was admitted through ER for severe shortness of breath and hypoxia consistent with acute on chronic combined respiratory failure. ABG showed 7.27/62/133 on 15 L nonrebreather mask. Patient was put on BiPAP and admitted in ICU. #1 acute on chronic hypoxemic and hypercapnic respiratory failure: Patient on intermittent BiPAP. shortness of breath is better. On 25% FiO2 BiPAP. BiPAP changed to nasal cannula 2 L/min pulse ox 94%. On further discussion with dragger Dr. De Los Santos who knows the patient well from pulmonary clinic visits, she was in hospice care but unclear what happened afterwards and landed in the ER and got admitted. Further discussion with family for advanced directive, goal of life and possible hospice care about [address] De Los Santos input appreciated. #2 progressive idiopathic pulmonary fibrosis: On IV Solu-Medrol. As her disease is progressive and seeing overall general health no definitive treatment, family discussion is the appropriate path to go. Rest as mentioned above #3 Acute kidney injury on stage III chronic kidney disease 3: Her baseline creatinine is about 1.4 in November 2017 although is slowly worsening from December 2016 when it was 1.25. Admitting creatinine 1.76, improved to 1.63. BUN 32. Creatinine 23 and 40 acute kidney injury probably secondary to diuretics and lisinopril. They are held. CKD seems due to intrinsic kidney disease/ATN #4 atypical chest pain-etiology unclear, most likely pleuritic in nature: Serial troponins are negative. #5 obstructive sleep apnea: Patient has BiPAP at home #6 hypertension #7 coronary artery disease #8 morbid obesity #9 spinal stenosis #10 hyperlipidemia/ DVT prophylaxis: Moderate risk for venous thromboembolic disease. first CBC reported platelet count 83,000 and then today 217,000. Probably first 1 had platelet clumps. on the heparin 5000 units subcutaneous every 8 hourly. Platelet count has recovered 211. Watch CBC until she is made hospice. Code Visit Inpatient E&M: 54447 Subs Hosp L3
--- NOTE | 2018-10-22 15:10 | PN_ITS ---
Patient Problems: Active and Suspected Problems (Last Updated 10/20/18 @ 21:32 by Osvaldo Franco DO) Shortness of breath (Acute) Subjective: Patient respiratory status is much better than yesterday. On 2 L oxygen through nasal cannula. Patient will need walking pulse oximetry. Family discussion at about 5 PM for goal of life care/advance directive Vitals/I&O's: Vital Signs Temp Pulse Resp BP Pulse Ox 98.2 F 95 18 137/76 H 95 10/22/18 07:50 10/22/18 10:02 10/22/18 07:50 10/22/18 07:50 10/22/18 07:50 Oxygen Flow Rate (L/min) 2 Oxygen Delivery Method Nasal Cannula Weight: 262 lb Body Mass Index (BMI) 45.1 Intake and Output for Last 24 Hours 10/20/18 10/21/18 10/22/18 23:59 23:59 23:59 Intake Total 247 / 247 1091 / 1091 1563 / 1563 Output Total 1150 / 1150 Balance 247 / 247 -59 / -59 1563 / 1563 General: Alert, Oriented x3, Cooperative HEENT: Atraumatic, PERRLA, EOMI, Normocephalic Neck: Supple, No JVD, Negative Carotid Bruits Lungs: Diminished - Air entry diffusely diminished anteriorly, laterally and posteriorly., Rales - Inspiratory worse rales present, - - Expiratory phase prolonged Cardiovascular: Regular rate, Regular Rhythm, Normal S1, Normal S2, No murmurs Abdomen: Bowel Sounds Present, Soft, Non Tender, Non-Distended, - - Sandy catheter present Extremities: Capillary Refill Less than 3 Seconds, Edema Skin: No rashes, No breakdown Musculoskeletal: No Tenderness to Palpation of Joints or Extremities, Arthritic Changes, Muscle Wasting Neurological: Cranial nerves II-XII grossly intact, Deep Tendon Reflexes 2+/4 and Symmetrical, Neuro grossly intact Psych/Mental Status: Normal Affect, Appropriate Microbiology Past 72 Hours 10/20/18 18:15 Mucosa - Nasopharyngeal Respiratory Panel (PCR) - Final Laboratory Results 10/22/18 05:58: WBC 9.8, RBC 3.43 L, Hgb 9.8 L, Hct 30.5 L, MCV 88.9, MCH 28.6, MCHC 32.1, RDW 14.1, RDW Differential 44.2 H, Plt Count 211, MPV 9.1, Immature Gran % (Auto) 0.900, Neut % (Auto) 83.5 H, Lymph % (Auto) 8.5 L, [place] % (Auto) 7.0, Eos % (Auto) 0.0, Baso % (Auto) 0.1, Absolute Neuts (auto) 8.2 H, Absolute Lymphs (auto) 0.83, Total Counted Not Reportable 10/22/18 05:58: Sodium 143, Potassium 3.9, Chloride 109 H, Carbon Dioxide 26.0, Anion Gap 8, BUN 27 H, Creatinine 1.32 H, Estim Creat Clear Calc 33.27, Est GFR (MDRD) Af Amer 51 L, Est GFR (MDRD) Non-Af 42 L, BUN/Creatinine Ratio 20.5 H, Glucose 119 H, Calcium 8.6 Current Medications Chlorhexidine Gluconate () [address] [facility] Last Admin: 10/22/18 10:00 Dose: Not Given Clopidogrel Bisulfate (Plavix) [address] [facility] Last Admin: 10/22/18 10:02 Dose: 75 mg Duloxetine HCl (Cymbalta) [address] [facility] Last Admin: 10/22/18 10:02 Dose: 60 mg Gabapentin (Neurontin) [address] [facility] Last Admin: 10/22/18 07:58 Dose: 300 mg Gabapentin (Neurontin) [address] [facility] Last Admin: 10/21/18 21:26 Dose: 400 mg Heparin Sodium (Porcine) (Heparin Na) 5,[address] [facility] Last Admin: 10/22/18 14:44 Dose: 5,000 unit Sodium Chloride () 250 mls @ 15 mls/hr IV .[id number] PRN PRN Reason: SALINE FLUSH Levothyroxine Sodium (Synthroid) 25 mcg PO DAILY@0600 [facility] Last Admin: 10/22/18 06:40 Dose: 25 mcg Linaclotide (Linzess) [address] [facility] Last Admin: 10/22/18 10:02 Dose: 145 mcg Lorazepam (Ativan) 0.5 mg PO Q4H PRN PRN PRN Reason: ANXIETY Last Admin: 10/22/18 07:59 Dose: 0.5 mg Meclizine HCl (Antivert) 25 mg PO TID PRN PRN PRN Reason: Vertigo Methadone HCl () 5 mg PO Q12 [facility] Last Admin: 10/22/18 10:02 Dose: 5 mg Metoprolol Succinate (Toprol Xl (Beta Vik)) 25 mg PO DAILY [facility] Last Admin: 10/22/18 10:02 Dose: 25 mg Senna (Senokot) 1 tablet PO TID [facility] Last Admin: 10/22/18 14:44 Dose: 1 tablet Sodium Chloride () 5 - 15 ml IV UD PRN PRN Reason: SALINE FLUSH Last Admin: 10/22/18 07:59 Dose: 10 ml Trazodone HCl (Desyrel) 50 mg PO QHS PRN PRN PRN Reason: SLEEP Last Admin: 10/21/18 21:27 Dose: 50 mg Medical Necessity - Tobacco Use Smoking Status: Never smoker Tobacco Use: Non-smoker Assessment/Plan All Active Problems (Last Updated 10/20/18 @ 21:32 by Osvaldo Franco DO) Shortness of breath (Acute) Chest pain (Resolved) Parotitis (Resolved) Atypical chest pain (Acute) NSTEMI (non-ST elevated myocardial infarction) (Resolved) Patient has history of progressive idiopathic pulmonary fibrosis. Previous multiple PFTs shows progression of IPF with decreasing DLCO. Patient on BiPAP. Feels shortness of breath is better. Heart rate is regular sinus rhythm. Respiratory rate 20-26/min. On 25% FiO2 BiPAP. BiPAP changed to nasal cannula 2 L/min pulse ox 94%. This 73-year-old female with history of progressive idiopathic pulmonary fibrosis. Previous multiple PFTs shows progression of IPF with decreasing DLCO. The patient was admitted through ER for severe shortness of breath and hypoxia consistent with acute on chronic combined respiratory failure. ABG showed 7.27/62/133 on 15 L nonrebreather mask. Patient was put on BiPAP and admitted in ICU. #1 acute on chronic hypoxemic and hypercapnic respiratory failure: Patient on intermittent BiPAP. shortness of breath is better. On 25% FiO2 BiPAP. BiPAP changed to nasal cannula 2 L/min pulse ox 94%. On further discussion with joiner Dr. De Los Santos who knows the patient well from pulmonary clinic visits, she was in hospice care but unclear what happened afterwards and landed in the ER and got admitted. Further discussion with family for advanced directive, goal of life and possible hospice care about [address] De Los Santos input appreciated. #2 progressive idiopathic pulmonary fibrosis: On IV Solu-Medrol. As her disease is progressive and seeing overall general health no definitive treatment, family discussion is the appropriate path to go. Rest as mentioned above #3 Acute kidney injury on stage III chronic kidney disease 3: Her baseline creatinine is about 1.4 in November 2017 although is slowly worsening from December 2016 when it was 1.25. Admitting creatinine 1.76, improved to 1.63. BUN 32. Creatinine 23 and 40 acute kidney injury probably secondary to diuretics and lisinopril. They are held. CKD seems due to intrinsic kidney disease/ATN #4 atypical chest pain-etiology unclear, most likely pleuritic in nature: Serial troponins are negative. #5 obstructive sleep apnea: Patient has BiPAP at home #6 hypertension #7 coronary artery disease #8 morbid obesity #9 spinal stenosis #10 hyperlipidemia/ DVT prophylaxis: Moderate risk for venous thromboembolic disease. first CBC reported platelet count 83,000 and then today 217,000. Probably first 1 had platelet clumps. on the heparin 5000 units subcutaneous every 8 hourly. Platelet count has recovered 211. Watch CBC until she is made hospice. Code Visit Inpatient E&M: 75244 Subs Hosp L3
--- NOTE | 2018-10-22 17:11 | NURSING ---
ambulating with 2L, pt dropped down to 88%. increased O2 to 3L and pt remained around 91-93% with activity.
[2018-10-22] MEDS: Gabapentin 400 MG Capsule PO (21:20)
[2018-10-22] MEDS: traZODone 50 MG Tablet PO (22:59)
[2018-10-23 03:17] VITALS: BP 145/79; PULSE 75; RESP 16; TEMP 36.7; O2SAT 96
[2018-10-23] MEDS: LORazepam 0.5 MG Tablet PO (03:33)
[2018-10-23] MEDS: Heparin Injection (Vial) 5,000 UNIT/ML VIAL 5000 UNIT SC (06:17)
[2018-10-23] MEDS: Levothyroxine 25 MCG TABLET PO (06:17)
[2018-10-23] MEDS: Senna Tablet 1 TABLET PO (06:17)
--- NOTE | 2018-10-23 07:59 | PCM.PROGNOTE ---
Patient Problems: Active and Suspected Problems (Last Updated 10/20/18 @ 21:32 by Osvaldo Franco DO) Shortness of breath (Acute) Subjective: The patient was seen and examined at the bedside this morning. Events from the last 24 hours have been reviewed. The patient is currently afebrile, hemodynamically stable and maintaining appropriate oxygen saturations on room air. The patient's respiratory status is at her baseline. The patient did meet with the hospice care team yesterday and has plans to return home with resumption of hospice care services. Objective: The patient's most recent lab work, culture data and imaging studies have all been personally reviewed. Blood cultures are pending. Respiratory viral panel was negative. - Physical Exam General: Alert, Cooperative, No apparent distress, - - Morbidly obese HEENT: Atraumatic, PERRLA, Normocephalic Oral: No Gingival or Mucosal Lesions/ Ulcerations Neck: Supple, No Nodes, Trachea Midline Lungs: No rhonchi, No wheeze, Diminished, Rales Cardiovascular: Regular rate, Regular Rhythm, Normal S1, Normal S2, No murmurs Abdomen: Bowel Sounds Present, Soft, Non Tender, Obese Extremities: No clubbing, No cyanosis, Edema Skin: No breakdown Musculoskeletal: No Tenderness to Palpation of Joints or Extremities, No Muscle Wasting Lymphatic: No Cervical, Supraclavicular, or Inguinal Adenopathy Neurological: Cranial nerves II-XII grossly intact, Neuro grossly intact Psych/Mental Status: Normal Affect, Appropriate Vital Signs Temp Pulse Resp BP Pulse Ox 36.7 C 75 16 145/79 H 96 10/23/18 03:17 10/23/18 03:17 10/23/18 03:17 10/23/18 03:17 10/23/18 03:17 Oxygen Flow Rate (L/min) [ 3 AMBULATION with Oxygen] Oxygen Flow Rate (L/min) 1 Oxygen Delivery Method Room Air Weight: 265 lb 3.457 oz Body Mass Index (BMI) 45.1 Intake and Output for Last 24 Hours 10/21/18 10/22/18 10/23/18 23:59 23:59 23:59 Intake Total 1091 / 1091 2673 / 2673 50 / 50 Output Total 1150 / 1150 Balance -59 / -59 2673 / 2673 50 / 50 Microbiology Past 72 Hours 10/20/18 18:15 Respiratory Panel (PCR) - Final Mucosa - Nasopharyngeal Labs (Last 48 Hours) 10/22/18 10/22/18 05:58 05:58 WBC 9.8 RBC 3.43 L Hgb 9.8 L Hct 30.5 L MCV 88.9 MCH 28.6 MCHC 32.1 RDW 14.1 RDW Differential 44.2 H Plt Count 211 MPV 9.1 Immature Gran % (Auto) 0.900 Neut % (Auto) 83.5 H Lymph % (Auto) 8.5 L [place] % (Auto) 7.0 Eos % (Auto) 0.0 Baso % (Auto) 0.1 Absolute Neuts (auto) 8.2 H Absolute Lymphs (auto) 0.83 Total Counted Not Reportable Sodium 143 Potassium 3.9 Chloride 109 H Carbon Dioxide 26.0 Anion Gap 8 BUN 27 H Creatinine 1.32 H Estim Creat Clear Calc 33.27 Est GFR (MDRD) Af Amer 51 L Est GFR (MDRD) Non-Af 42 L BUN/Creatinine Ratio 20.5 H Glucose 119 H Calcium 8.6 Microbiology 10/20/18 18:15 Mucosa - Nasopharyngeal Respiratory Panel (PCR) - Final Clinical Impression(s) from Imaging Studies Chest X-Ray 10/20/18 15:09 IMPRESSION: Stable examination. Electronically Signed: Bernabe Norwood MD at 15:45 EST Tel [phone], Service support , Chest X-Ray 10/20/18 17:05 IMPRESSION: Right IJ line terminates in the SVC at the right atrial junction. No acute process. Electronically Signed: Amaris Barr MD at 17:57 EST Tel , Service support , Chest X-Ray 10/21/18 05:55 IMPRESSION: No acute cardiopulmonary disease. Electronically Signed: Raman Schwab MD at 5:44 EST , Service support , Medical Necessity - Tobacco Use Smoking Status: Never smoker Tobacco Use: Non-smoker Assessment/Plan All Active Problems (Last Updated 10/20/18 @ 21:32 by Osvaldo Franco DO) Shortness of breath (Acute) Chest pain (Resolved) Parotitis (Resolved) Atypical chest pain (Acute) NSTEMI (non-ST elevated myocardial infarction) (Resolved) RECOMMENDATIONS: 1. Continue supplemental oxygen at 2 L/min per baseline. 2. Plan for discharge with resumption of hospice care services. IMPRESSIONS: 1. Acute on chronic hypoxemic respiratory failure The patient has a history of restrictive lung mechanics due to presumptive idiopathic pulmonary fibrosis. She has been followed longitudinally in the pulmonary medicine clinic. At her last office visit, the patient was referred to hospice care. However, the patient recently revoked her hospice care services. She has a baseline 2 L/min supplemental oxygen requirement and was scheduled to undergo repeat pulmonary function testing and CT chest in the upcoming months. The patient was able to be weaned quickly from noninvasive positive pressure ventilation and is currently maintaining appropriate oxygen saturations on her baseline 2 L/min requirement. She has no readily identifiable pulmonary infectious process. Following a meeting with hospice care services yesterday, the patient has elected to reinstitute home hospice care and will be discharged home today accordingly. 2. Radiographic findings concerning for idiopathic pulmonary fibrosis The patient has been followed longitudinally in the pulmonary medicine clinic. This is a progressive disease and the patient's symptoms will likely continue to worsen with time, as well as her supplemental oxygen requirement. Recommend repeating a walk test prior to consideration for discharge from the hospital. 3. Obstructive sleep apnea The patient has been compliant with use of nocturnal Pap therapy. She is currently prescribed a BiPAP pressure support setting of 18/12 centimeters of water with humidification. Recommend continuation of nocturnal BiPAP therapy while admitted to the hospital. 4. Morbid obesity/depression/anxiety Complicates care, management, recovery and prognosis. Okay to continue home medications from my perspective. This note was generated with [employer] dictation software. It may contain incorrect words, spelling, and punctuation that were not noted in checking the note before signing. Code Visit Inpatient E&M: 26363 Subs Hosp L2
--- NOTE | 2018-10-23 08:49 | DCINST_ITS ---
- Discharge Diagnoses Current Active Problems: Current Active and Chronic Problems (Last Updated 10/20/18 @ 21:32 by Osvaldo Franco DO) Shortness of breath (Acute) You will use the following diet at home:: Regular, Fluid restricted (specify 2000 mls, 1500 mls) - 1800 ml Discharge Activity: May Not Drive Additional Instructions: Follow with hospice agency at home. Call Pulmonary clinic, Dr. De Los Santos if help is needed for SOB/hypoxia Allergies/Adverse Reactions: Allergies codeine Allergy (Verified 10/20/18 15:09) Shortness of breath Penicillins Allergy (Verified 10/20/18 15:09) Shortness of breath Sulfa (Sulfonamide Antibiotics) Allergy (Verified 10/20/18 15:09) Shortness of breath atorvastatin Adverse Reaction (Intermediate, Verified 10/20/18 15:09) Myalgias Medications to take at Discharge Nitroglycerin [Nitrostat] 0.4 mg SUBLINGUAL Q5M PRN 03/29/16 Oxygen, Home [Home Oxygen] 2 lpm NASAL CONT 04/03/16 c-pap MISCELLANEOUS 11/11/17 aspirin 81 mg tablet,delayed release 81 mg PO QDAY #30 tab 12/08/17 lisinopril 10 mg tablet 10 mg PO DAILY #30 tab 12/08/17 cholecalciferol (vitamin D3) 2,000 unit tablet 2,000 unit PO QDAY tab 12/17/17 fentanyl 12 mcg/hr transdermal patch 1 patch TRANSDERMAL Q72H 01/13/18 ranitidine 300 mg tablet 300 mg PO QDAY tab 01/15/18 metoprolol succinate ER 25 mg tablet,extended release 24 hr 25 mg PO DAILY #30 tab 01/23/18 gabapentin 400 mg capsule 800 mg PO QHS #180 cap 02/05/18 clopidogrel 75 mg tablet 75 mg PO DAILY #90 tab 03/20/18 linaclotide 145 mcg capsule 145 mcg PO QDAY #90 cap 04/01/18 albuterol sulfate HFA 90 mcg/actuation aerosol inhaler 2 puff INHALATION Q4H PRN #18 g 07/31/18 amitriptyline 25 mg tablet 50 mg PO QDAY tab 07/31/18 loratadine 10 mg capsule 10 mg PO DAILY #90 cap 08/07/18 omeprazole 40 mg capsule,delayed release 40 mg PO DAILY #90 cap 08/07/18 trazodone 50 mg tablet 50 mg PO QHS PRN #90 tab 08/11/18 guaifenesin ER 1,200 mg tablet, extended release 12 hr 1,200 mg PO Q12H #14 tab 09/02/18 duloxetine 20 mg capsule,delayed release 60 mg PO BID #180 cap 09/09/18 gabapentin 300 mg capsule 300 mg PO BID #180 cap 09/09/18 levothyroxine 25 mcg tablet 25 mcg PO DAILY #90 tab 09/09/18 montelukast 10 mg tablet 10 mg PO DAILY #90 tab 09/09/18 pravastatin 40 mg tablet 40 mg PO QHS #90 tab 09/09/18 lorazepam 0.5 mg tablet 0.5 mg PO QHS PRN #30 tab 09/21/18 Albuterol Sulfate 2.5 mg IH Q4H PRN PRN 10/21/18 Gabapentin [Neurontin] 300 mg PO DAILY 10/21/18 Gabapentin [Neurontin] 400 mg PO QHS 10/21/18 Levothyroxine [Synthroid] 25 mcg PO DAILY 10/21/18 Linacolotide [Linzess] 145 mcg PO DAILY 10/21/18 Lorazepam [Ativan] 0.5 mg PO Q4H PRN PRN 10/21/18 Meclizine HCl [Antivert] 25 mg PO TID PRN PRN 10/21/18 Methadone HCl [(None)] 5 mg PO Q12H 10/21/18 Metoprolol Succinate 25 mg PO DAILY 10/21/18 Senna [Senokot] 1 tablet PO TID 10/21/18 morphine solution (IR) [Roxanol (IR oral solution)] 5 - 10 mg PO Q4H PRN PRN 10/21/18 traZODone [Desyrel] 50 mg PO QHS PRN PRN 10/21/18 Furosemide 40 mg PO DAILY PRN PRN #90 tab 10/23/18 Primary Care Physician: Judy Mcnulty MD [Primary Care Provider] - Please follow up with your Primary Care Physician in: In 1-2 weeks Test Results: Test results from this visit will be discussed in further detail at your follow- up appointment, if applicable.
--- NOTE | 2018-10-23 08:49 | PCM.DC.SUM ---
Discharge Date and Diagnosis Date of Admission: 10/20/18 Date of Discharge: 10/23/18 - Primary Discharge Diagnosis Active and Suspected Problems (Last Updated 10/20/18 @ 21:32 by Osvaldo Franco DO) Shortness of breath (Acute) #1 acute on chronic hypoxemic and hypercapnic respiratory failure secondary to progressive idiopathic pulmonary fibrosis Acute kidney injury on stage III chronic kidney disease 3: - Secondary Discharge Diagnosis Chronic Problems (Last Updated 10/20/18 @ 21:32 by Osvaldo Franco DO) CKD (chronic kidney disease), stage III (Chronic) Spinal stenosis (Chronic) Hyperlipidemia (Chronic) Old myocardial infarction (Chronic) NONSTEMI March 2015 Chronic constipation (Chronic) MYRNA (obstructive sleep apnea) (Chronic) Chronic hypoxemic respiratory failure (Chronic) Anxiety (Chronic) Hypothyroid (Chronic) Low back pain radiating to right lower extremity (Chronic) CKD (chronic kidney disease), stage II (Chronic) HTN (hypertension) (Chronic) Idiopathic pulmonary fibrosis (Chronic) Chronic renal failure, stage 3 (moderate) (Chronic) Fibromyalgia (Chronic) Somatic dysfunction of rib cage region (Chronic) Stented coronary artery (Chronic) 2 stents to the RCA in March by Dr. Irvin; PCI-BMS-RCA X 2 03/16/15; [facility] w/PCI JORDAN-RCA 04/10/17 CAD (coronary artery disease) (Chronic) Morbid obesity (Chronic) GERD (gastroesophageal reflux disease) (Chronic) Hospital Course and Treatment Operations: None Summary of Care Provided: This 73-year-old female with history of progressive idiopathic pulmonary fibrosis. Previous multiple PFTs shows progression of IPF with restrictive ventilatory physiology with decreasing DLCO. The patient was admitted through ER for severe shortness of breath and hypoxia consistent with acute on chronic combined respiratory failure. ABG showed 7.27/62/133 on 15 L nonrebreather mask. Patient was put on BiPAP and admitted in ICU [facility] #1 acute on chronic hypoxemic and hypercapnic respiratory failure: Patient on intermittent BiPAP. shortness of breath is better. On 25% FiO2 BiPAP. BiPAP changed to nasal cannula 2 L/min pulse ox 94%. On further discussion with makeup sales consultant Dr. De Los Santos who knows the patient well from pulmonary clinic visits, she was in hospice care later on patient revoked and therefore she got admitted in ICU. Further discussion with family for advanced directive, goal of life was done with palliative care team and Dr. De Los Santos on 10/22 and patient elected home hospice care. Patient is on baseline breathing. Does not have leg edema. #2 progressive idiopathic pulmonary fibrosis: Steroid was discontinued. As her disease is progressive and seeing overall general health no definitive treatment, family discussion is the appropriate path to go. Rest as mentioned above #3 Acute kidney injury on stage III chronic kidney disease 3: Her baseline creatinine is about 1.4 in November 2017 although is slowly worsening from December 2016 when it was 1.25. Admitting creatinine 1.76, improved to 1.63. BUN 32. Creatinine 23 and 40 acute kidney injury probably secondary to diuretics and lisinopril. They are held. CKD seems due to intrinsic kidney disease/ATN #4 atypical chest pain-etiology unclear, most likely pleuritic in nature: Serial troponins are negative. Patient had echo in April 2016 which showed EF 75% with moderate concentric LVH. Stage I diastolic dysfunction. Patient was on Lasix but currently BNP is 78.3 which goes against CHF exacerbation/pulmonary physiology. Lasix was made 40 mg as needed as needed for leg edema. #5 obstructive sleep apnea: Patient has BiPAP at home #6 hypertension #7 coronary artery disease status post stenting RCA in April 2017 #8 morbid obesity #9 spinal stenosis #10 hyperlipidemia/ DVT prophylaxis: Moderate risk for venous thromboembolic disease. first CBC reported platelet count 83,000 and then today 217,000. Probably first 1 had platelet clumps. on the heparin 5000 units subcutaneous every 8 hourly. Platelet count has recovered 211. Advanced directive: Patient is made DNR CC with home hospice care. Discharged home with home hospice care Discharge medication reconciliation done. Discharge follow-up instructions completed. Discharge process discussed with the patient. Total time spent, exact 35 minutes on discharge meds reconciliation, examination, review of imaging and blood test and discussion with the patient on follow-up instructions. Subjective: Seen and examined. Patient is sitting on the chair. On oxygen 2 L/min. Heart rate is controlled. No fever. Objective: General: Alert, Oriented x3, Cooperative HEENT: Atraumatic, PERRLA, EOMI, Normocephalic Neck: Supple, No JVD, Negative Carotid Bruits Lungs: Air entry diffusely diminished anteriorly, laterally and posteriorly. Inspiratory worse rales present, Expiratory phase prolonged Cardiovascular: Regular rate, Regular Rhythm, Normal S1, Normal S2, No murmurs Abdomen: Bowel Sounds Present, Soft, Non Tender, Non-Distended, - - Sandy catheter present Extremities: Capillary Refill Less than 3 Seconds, No pedal Edema Skin: No rashes, No breakdown Musculoskeletal: No Tenderness to Palpation of Joints or Extremities, Arthritic Changes, Muscle Wasting Neurological: Cranial nerves II-XII grossly intact, Deep Tendon Reflexes 2+/4 and Symmetrical, Neuro grossly intact Psych/Mental Status: Normal Affect, Appropriate - Physical Exam Vital Signs Temp Pulse Resp BP Pulse Ox 98.1 F 75 16 145/79 H 96 10/23/18 03:17 10/23/18 03:17 10/23/18 03:17 10/23/18 03:17 10/23/18 03:17 Oxygen Flow Rate (L/min) [ 3 AMBULATION with Oxygen] Oxygen Flow Rate (L/min) 2 Oxygen Delivery Method Room Air Weight: 265 lb 3.457 oz Body Mass Index (BMI) 45.1 Intake and Output for Last 24 Hours 10/21/18 10/22/18 10/23/18 23:59 23:59 23:59 Intake Total 1091 / 1091 2673 / 2673 50 / 50 Output Total 1150 / 1150 Balance -59 / -59 2673 / 2673 50 / 50 Microbiology Past 72 Hours 10/20/18 18:15 Respiratory Panel (PCR) - Final Mucosa - Nasopharyngeal Discharge Activity: May Not Drive Home Medications: Medications to take at Discharge Nitroglycerin [Nitrostat] 0.4 mg SUBLINGUAL Q5M PRN 03/29/16 Oxygen, Home [Home Oxygen] 2 lpm NASAL CONT 04/03/16 c-pap MISCELLANEOUS 11/11/17 aspirin 81 mg tablet,delayed release 81 mg PO QDAY #30 tab 12/08/17 lisinopril 10 mg tablet 10 mg PO DAILY #30 tab 12/08/17 cholecalciferol (vitamin D3) 2,000 unit tablet 2,000 unit PO QDAY tab 12/17/17 fentanyl 12 mcg/hr transdermal patch 1 patch TRANSDERMAL Q72H 01/13/18 ranitidine 300 mg tablet 300 mg PO QDAY tab 01/15/18 metoprolol succinate ER 25 mg tablet,extended release 24 hr 25 mg PO DAILY #30 tab 03/23/18 gabapentin 400 mg capsule 800 mg PO QHS #180 cap 02/05/18 clopidogrel 75 mg tablet 75 mg PO DAILY #90 tab 03/20/18 linaclotide 145 mcg capsule 145 mcg PO QDAY #90 cap 04/01/18 albuterol sulfate HFA 90 mcg/actuation aerosol inhaler 2 puff INHALATION Q4H PRN #18 g 07/31/18 amitriptyline 25 mg tablet 50 mg PO QDAY tab 07/31/18 loratadine 10 mg capsule 10 mg PO DAILY #90 cap 08/07/18 omeprazole 40 mg capsule,delayed release 40 mg PO DAILY #90 cap 08/07/18 trazodone 50 mg tablet 50 mg PO QHS PRN #90 tab 08/11/18 guaifenesin ER 1,200 mg tablet, extended release 12 hr 1,200 mg PO Q12H #14 tab 09/02/18 duloxetine 20 mg capsule,delayed release 60 mg PO BID #180 cap 09/09/18 gabapentin 300 mg capsule 300 mg PO BID #180 cap 09/09/18 levothyroxine 25 mcg tablet 25 mcg PO DAILY #90 tab 09/09/18 montelukast 10 mg tablet 10 mg PO DAILY #90 tab 09/09/18 pravastatin 40 mg tablet 40 mg PO QHS #90 tab 09/09/18 lorazepam 0.5 mg tablet 0.5 mg PO QHS PRN #30 tab 09/21/18 Albuterol Sulfate 2.5 mg IH Q4H PRN PRN 10/21/18 Gabapentin [Neurontin] 300 mg PO DAILY 10/21/18 Gabapentin [Neurontin] 400 mg PO QHS 10/21/18 Levothyroxine [Synthroid] 25 mcg PO DAILY 10/21/18 Linacolotide [Linzess] 145 mcg PO DAILY 10/21/18 Lorazepam [Ativan] 0.5 mg PO Q4H PRN PRN 10/21/18 Meclizine HCl [Antivert] 25 mg PO TID PRN PRN 10/21/18 Methadone HCl [(None)] 5 mg PO Q12H 10/21/18 Metoprolol Succinate 25 mg PO DAILY 10/21/18 Senna [Senokot] 1 tablet PO TID 10/21/18 morphine solution (IR) [Roxanol (IR oral solution)] 5 - 10 mg PO Q4H PRN PRN 10/21/18 traZODone [Desyrel] 50 mg PO QHS PRN PRN 10/21/18 Furosemide 40 mg PO DAILY PRN PRN #90 tab 10/23/18 Primary Care Physician: Judy Mcnulty MD [Primary Care Provider] - Please follow up with your Primary Care Physician in: In 1-2 weeks Medical Necessity - Tobacco Use Smoking Status: Never smoker Tobacco Use: Non-smoker Meaningful Use Info Meaningful Use Diagnoses (Choose all that apply): None applicable Code Visit Inpatient E&M: 85625 Disch Hosp
[2018-10-23 09:40] VITALS: BP 128/56; PULSE 80; RESP 18; TEMP 36.7; O2SAT 96
[2018-10-23 10:46] VITALS: PULSE 85
[2018-10-23] MEDS: Linacolotide 145 MCG CAPSULE PO (10:46)
[2018-10-23] MEDS: Clopidogrel Bisulfate 75 MG Tablet PO (10:46)
[2018-10-23] MEDS: Gabapentin 300 MG Capsule PO (10:46)
[2018-10-23] MEDS: Metoprolol(XL)Succ 25 MG Tablet PO (10:46)
[2018-10-23] MEDS: DULoxetine Hcl 60 MG Capsule PO (10:46)
--- NOTE | 2018-10-23 11:18 | CASEMGMT ---
Addendum entered by Raquel Yepez 10/23/18 13:09: Return call from pt niece and she will be picking pt up shortly and will transport home. Hospice notified and staff editor notified. KARIN Mares Original Note: Social Work Pt will be d/c today with services of [facility]. D/C orders faxed to hospice and Carmen notified of d/c home today. VM left with pt niece requesting family let SW know when pt will be picked up so coordination can be made with hospice to meet pt at home when she arrives. RN aware. Will await return call from family. KARIN Mares
--- NOTE | 2018-10-23 11:28 | NURSING ---
gave report to Adrian from [facility]. will notify them when pt is discharged with transport by leonor Keating.
--- NOTE | 2018-10-26 10:52 | CASEMGMT ---
Addendum entered by Marcella Kitchen 10/28/18 08:52: Annalise, pt's rifle case repairer, called back requesting SW fax discharge instructions. SW faxed instructions and discharge summary to Annalise. MARCELLUS Vanegas, SENIOR CLINICAL DATA COORDINATOR Original Note: SW did leave a message for Annalise, pt's rifle case repairer letting her know that pt went home Leo with hospice. SW also called the covering rifle case repairer, Lucy, know also that pt went home Leo with hospice. MARCELLUS Vanegas, SENIOR CLINICAL DATA COORDINATOR
== END 2018-10-23 12:29 | disposition hospice, home (50) | DRG 189 ==
LOC: ED 15:42 → ICU 19:14 → MS2 10-21 19:12
PROVIDERS: Admitting Provider Internal Medicine; Emergency Provider Emergency Medicine; Family Provider Internal Medicine; PCP Internal Medicine; Visit Provider Internal Medicine
DX: J96.21 Acute and chronic respiratory failure with hypoxia (principal); N17.0 Acute kidney failure with tubular necrosis; Z68.42 Body mass index [BMI] 45.0-49.9, adult; J96.22 Acute and chronic respiratory failure with hypercapnia; G47.33 Obstructive sleep apnea (adult) (pediatric); E03.9 Hypothyroidism, unspecified; I12.9 Hypertensive chronic kidney disease with stage 1 through stage 4 chronic kidney disease, or unspecified chronic kidney disease; E78.5 Hyperlipidemia, unspecified; E66.01 Morbid (severe) obesity due to excess calories; M79.7 Fibromyalgia; M48.00 Spinal stenosis, site unspecified; I25.10 Atherosclerotic heart disease of native coronary artery without angina pectoris; M99.08 Segmental and somatic dysfunction of rib cage; K21.9 Gastro-esophageal reflux disease without esophagitis; J84.112 Idiopathic pulmonary fibrosis; K59.09 Other constipation; I25.2 Old myocardial infarction; Z95.5 Presence of coronary angioplasty implant and graft; N18.3 Chronic kidney disease, stage 3 (moderate); Z79.899 Other long term (current) drug therapy; F41.9 Anxiety disorder, unspecified; R07.89 Other chest pain; Z51.5 Encounter for palliative care; Z66 Do not resuscitate
CPT/HCPCS: 36556; 36600; 71045; 80048; 82803; 83605; 83880; 84484; 85025; 85027; 87040; 87633; 93005; 94002; 94003; 94640; 97162; 97165; 97530; 97535; 97802; 99251; 99284; J7030; A4216; C1751; G0463

== ENCOUNTER 2020-08-22 08:51 | Emergency (ER) | payer MEDICARE, MEDICAID, SELFPAY ==
[2017-04-11 08:38] VITALS: BMI 43.9
[2018-10-20 20:00] VITALS: BMI 45.1
[2020-08-22 08:53] VITALS: BP 148/95; PULSE 84; RESP 34; TEMP 36.2; O2SAT 99; BMI 41.7
--- NOTE | 2020-08-22 09:04 | CT_ITS ---
STUDY: CT BRAIN WITHOUT CONTRAST REASON FOR EXAM: Female, 75 years old. FALL AT ECF, HTN RADIATION DOSAGE (If Supplied By Facility): CTDIvol = ( 44.99 ) mGy, DLP = ( 796.11 ) mGycm TECHNIQUE: Transaxial CT imaging of the brain was performed without administration of intravenous contrast material. Individualized dose optimization techniques were used for this CT. COMPARISON: No relevant priors. FINDINGS: Normal soft tissue structures. Normal calvarium. There is mild cerebral atrophy with widening of the extra-axial spaces and ventricular dilatation. Encephalomalacia in the right temporal lobe in keeping with prior ischemic insult. Normal basal ganglia and thalami. Normal brainstem. Normal cerebellum. There is no intracranial hemorrhage. There are no findings of an acute ischemic infarction. Air-fluid level in the right maxillary sinus. CT/Brain/Head without Contrast IMPRESSION: Chronic involutional changes of the brain. Focal encephalomalacia in the right temporal lobe Electronically Signed: Bernabe Norwood, at 9:45 EDT , Service support ,
--- NOTE | 2020-08-22 09:26 | RAD_ITS ---
STUDY: X-RAY - PELVIS AND RIGHT HIP REASON FOR EXAM: Female, 75 years old. PATIENT FELL OUT OF BED. PAIN IN RIGHT HIP TECHNIQUE: 3 views of the pelvis and hip. COMPARISON: None. FINDINGS: There is a non-specific bowel gas pattern. Normal visualized soft tissue structures. Normal bilateral iliac wings, sacroiliac joints and visualized sacrum. Normal bilateral superior and inferior pubic rami. There are degenerative changes of the pubic symphysis with articular narrowing and sclerosis. Normal bilateral ischial tuberosities. There are osteoarthritic changes of the femoral head with marginal osteophyte formation. There is osteoarthritic spur formation of the acetabular rim. is severe articular joint space narrowing of the hip. Marked degree of joint space narrowing and degenerative changes of the left hip joint with multiple subchondral cysts of the left femoral head. RAD/HIP, UNI W/ Pelvis 2-3 Views IMPRESSION: Osteoarthritis of both hip joints worse on the left side. No fracture is seen. Electronically Signed: Bernabe Norwood, at 9:47 EDT , Service support ,
--- NOTE | 2020-08-22 10:55 | ED.DCSUM_ITS ---
History of Present Illness Chief Complaint: Fall Informant: Patient, SNF Narrative: Patient is a 75-year-old female who presents to the emergency department from hospice after she had a fall out of bed. Patient is a very poor historian given her dementia. She does have some bruising around her right face. She is complaining of some right hip pain. She otherwise denies any chest pain, shortness of breath. No abdominal pain. She does not appear to have any other injury to her extremities. Patient is not on any anticoagulation. Past Medical History - Allergies and Home Meds Allergies/Adverse Reactions: Allergies codeine Allergy (Verified 08/22/20 08:52) Shortness of breath Penicillins Allergy (Verified 08/22/20 08:52) Shortness of breath Sulfa (Sulfonamide Antibiotics) Allergy (Verified 08/22/20 08:52) Shortness of breath atorvastatin Adverse Reaction (Intermediate, Verified 08/22/20 08:52) Myalgias Primary Care Physician: Judy Mcnulty MD [Primary Care Provider] - 2 Days Prior records reviewed: Yes Surgical History: no surgical history, hysterectomy, - - 2 coronary stents into the RCA in March 2015. Kidney Stones. Smoking Status: Unknown if ever smoked - Family History Maternal Family History: Family History (Last Reviewed 10/02/18 @ 19:13 by Shivani Medellin NP, [employer]) Sister Hypertension COPD (chronic obstructive pulmonary disease) Mother Dementia Family History: Reports: Hypertension Paternal Family History: Family History (Last Reviewed 10/02/18 @ 19:13 by Shivani Medellin NP, [employer]) Sister Hypertension COPD (chronic obstructive pulmonary disease) Mother Dementia Family History: Reports: No pertinent history Sibling Family History: Family History (Last Reviewed 10/02/18 @ 19:13 by Shivani Medellin NP, [employer]) Sister Hypertension COPD (chronic obstructive pulmonary disease) Mother Dementia Family History: Reports: Heart Disease Review of Systems ROS: Unable to Obtain Physical Exam Vital Signs/Narrative: Vital Signs Temp Pulse Resp BP Pulse Ox 08/22/20 08:53 97.2 F L 84 34 H 148/95 H 99 Inital Vital Signs reviewed: Yes General: Well nourished, Well developed, No Acute Distress Head: Normocephalic, Atraumatic Eyes: Perrl, EOMI ENT: Moist mucous membranes, No rhinorrhea Neck: Supple, Nontender Cardiovascular: Regular rate, Regular rhythm, No murmurs Respiratory: No distress, CTA bilaterally, Chest nontender Abdomen: Soft, Nontender, Nondistended, Normal bowel sounds Back: Nontender, Normal Inspection. Negative for: Spinal tenderness Extremities: Nontender, No edema Skin: Normal color, No rash Neurological: Alert, - - Patient follows some commands. She does answer questions but sometimes inappropriately. Diagnostic/Tx/Re-eval - Medical Decision Making Patient presents emerge department after a fall out of bed. She does have history dementia and is a poor historian. She is on hospice. T scan of the head was negative for acute intracranial abnormality. X-ray of the pelvis did not show any signs of acute fracture. At this time will discharge back to hospice in stable condition. If she develops any worsening symptoms she can return at anytime. ED Disposition - Plan for ED Patient: Disposition: Home or Assisted Living Diagnosis: Fall, Closed head injury, Hip pain Instructions: ED Fall Uncertain Cause, ED Head Injury Adult Referrals: Judy Mcnulty MD [Primary Care Provider] - 2 Days
[2020-08-22 11:33] VITALS: BP 112/72; PULSE 64; RESP 25; O2SAT 97
--- NOTE | 2020-08-22 11:37 | ED.RN ---
called Viv[facility] at [facility].
--- NOTE | 2020-08-22 11:51 | ED.RN ---
per taryn the chief design drafter, [facility] called and stated that the family is trying to decide whether to send the pt back to [facility] or hospice. pt here in ed until decision by family.
--- NOTE | 2020-08-22 12:07 | ED.RN ---
spoke with [facility] at [facility] who was speaking with Jessica HIGGINBOTHAM, legal manager, we are to hold the pt until Jessica HIGGINBOTHAM, case management social worker speaks with her
--- NOTE | 2020-08-22 12:21 | ED.RN ---
ok by brandon crowderfurnace combustion analyst for hospice to go to hospice.
--- NOTE | 2020-08-22 12:22 | ED.RN ---
called report called to [facility], at hospice inpatient.
== END 2020-08-22 12:30 | disposition home or self-care (01) ==
PROVIDERS: Emergency Provider Emergency Medicine; PCP Internal Medicine
DX: S09.90XA Unspecified injury of head, initial encounter (principal); W06.XXXA Fall from bed, initial encounter; Y93.9 Activity, unspecified; Y92.9 Unspecified place or not applicable; Y99.9 Unspecified external cause status; M16.0 Bilateral primary osteoarthritis of hip; F03.90 Unspecified dementia, unspecified severity, without behavioral disturbance, psychotic disturbance, mood disturbance, and anxiety; Z51.5 Encounter for palliative care
CPT/HCPCS: 70450; 73502; 99284